=== PATIENT | female | born 1950 | race Caucasian/White ===

== ENCOUNTER → 2019-08-31 | Outpatient (CLI) | payer BC, SELFPAY ==
[2019-08-31 14:31] VITALS: BMI 26.9
[2019-08-31 17:37] LABS: Vitamin D,25 Hydroxy 31.8 ng/mL
[2019-08-31 17:40] LABS: Absolute Lymphocyte Count 1.68 X10^3/uL (0.83-4.51); Absolute Neutrophil Count 4.7 X10^3/uL (2.0-7.7); Basophil# 0.07 X10^3/uL; Eosinophil# 0.21 X10^3/uL; Eosinophils% 2.9 % (0-5); Hemoglobin 14.2 g/dL (12.0-15.0); Lymphocyte # 1.68 X10^3/ul (4.0); Lymphocyte % 23.3 % (19-41); Mean Corpuscular Hgb 29.7 pg (27.0-32.0); Mean Platelet Vol. 10.3 fl (6.2-12.0); Monocyte# 0.57 X10^3/uL; Monocyte% 7.9 % (0-10); NRBC Flagged by Analyzer 0 % (0-5); Neutrophil # 4.66 X10^3/uL (2.7-7.7); Neutrophil % 64.8 % (47-70); Platelet Count 317 K/mm3 (150-450); RBC Distribution Width CV 12.8 % (11.6-14.6); RBC Distribution Width SD 42.5 fl (35.1-43.9); Red Blood Count 4.78 M/mm3 (4.2-5.4); White Blood Count 7.2 K/mm3 (4.4-11.0)
[2019-08-31 17:41] LABS: ALB/GLOB Ratio 1.2 RATIO (0.9-2.4); AST(SGOT) 23 U/L (15-37); Alanine Aminotransfer ALT/SGPT 21 U/L (13-56); Albumin, Serum 3.8 g/dL (3.2-5.0); Alkaline Phosphatase 99 U/L (45-117); Anion Gap 5 (5-15); BUN 15 mg/dL (7-18); BUN/Creat Ratio 19.9 RATIO (10-20); Calcium,Total 9.4 mg/dL (8.5-10.1); Chloride 104 mmol/L (98-107); Cholesterol 238 mg/dL (200); Creatinine, Serum 0.75 mg/dL (0.55-1.02); EST Glomerular Filtration Rate 81 mL/min (>60); Est Glom Filt Rate - Afr Amer 98 mL/min (>60); Globulin 3.1 g/dL (2.2-4.2); Glucose 96 mg/dL (74-106); High Density Lipoprotein 118 mg/dL; Potassium 4.1 mmol/L (3.5-5.1); Protein, Total 6.9 g/dL (6.4-8.2); Sodium Level 139 mmol/L (136-145); Triglycerides 82 mg/dL; Very Low Density Lipoprotein 16 mg/dL (5-40)
== END | disposition home or self-care (01) ==
PROVIDERS: PCP Internal Medicine; Visit Provider Internal Medicine
DX: K21.9 Gastro-esophageal reflux disease without esophagitis (principal); E78.5 Hyperlipidemia, unspecified; M85.80 Other specified disorders of bone density and structure, unspecified site
CPT/HCPCS: 36415; 80053; 80061; 82306; 85025

== ENCOUNTER → 2020-02-24 | Outpatient (CLI) | payer BC, SELFPAY ==
[2019-08-31 14:31] VITALS: BMI 26.9
--- NOTE | 2020-02-24 12:28 | BI_ITS ---
MAMMOGRAPHY - BILATERAL SCREENING REASON FOR EXAM: Female, 69 years old. Routine annual screening examination. PERTINENT HISTORY: Non-contributory. TECHNIQUE: Digital bilateral breast rickey (3D mammographic acquisition) in the CC and MLO projections. 2-D mediolateral oblique (MLO) and craniocaudad (CC) views of both breasts were obtained. CAD: Full Field Digital Mammography with Computer Added Detection was performed. COMPARISON: Comparison is made with prior outside examination dated 10/01/2018. FINDINGS: Breast Composition: The breasts are almost entirely fatty. There are no dominant masses or suspicious calcifications. Stable well-defined 3 mm nodules in the upper outer aspects of both breasts most likely representing small intramammary lymph nodes. No other significant abnormalities are identified. There has been no significant change since the prior study. BI/SCREEN MAMM (CAD) W/RICKEY BILAT IMPRESSION: Stable bilateral screening mammogram. Yearly follow-up mammogram recommended. (A) ASSESSMENT CATEGORY: BIRADS Category 2: Benign. A letter regarding these results will be sent to the patient by the facility within 30 days. Approximately 10% of breast cancers are not detected by mammography. A normal mammogram should not delay biopsy of a clinically suspicious abnormality. [id number] Electronically Signed: Adam Temple, at 13:20 EDT , Service support ,
--- NOTE | 2020-02-24 12:28 | US_ITS ---
STUDY: THYROID ULTRASOUND REASON FOR EXAM: Female, 69 years old. Nodules TECHNIQUE: Ultrasound evaluation of the thyroid was performed with real-time and static bhardwaj-scale imaging. COMPARISON: Comparison is made with prior examination dated 06/17/2018. FINDINGS: RIGHT LOBE: The right lobe of the thyroid gland measures 4.9 cm x 1.6 cm x 1.9 cm. There is a homogeneous echotexture. Multiple nodules are seen. The largest is a complex solid/cystic nodule in the midpole of the right lobe. This measures 9 mm x 7 mm x 6 mm. LEFT LOBE: The left lobe of the thyroid gland measures 4.7 cm x 1.7 cm x 1.7 cm. There is a homogeneous echotexture. There is a stable 3 mm x 2 mm x 3 mm cyst in the upper pole of the left lobe ISTHMUS: The isthmus measures 2.0 mm. The regional lymph nodes are normal. US/Thyroid IMPRESSION: Stable examination. Electronically Signed: Adam Temple, at 15:04 EDT , Service support ,
--- NOTE | 2020-02-24 12:53 | BD_ITS ---
STUDY: DUAL ENERGY X-RAY ABSORPTIOMETRY / DXA REASON FOR EXAM: Female, 69 years old. [employer] -- TAKES CALCIUM IRREGULARLY -- DOES MODERATE AMOUNT OF EXERCISE -- HX OF BILATERAL ARM FX''s AND BILATERAL FEET FX''s -- NO MARK TECHNIQUE: Bone Mineral Density (BMD) measurements of lumbar spine and bilateral hips were obtained. COMPARISON: None. FINDINGS: Lumbar Spine (L1-L4): g/cm2 (0.984) / T-score (-1.6) / Z-score (0.1) Findings are suggestive of osteopenia with a moderate fracture risk. Left Femur Total: g/cm2 (0.734) / T-score (-2.2) / Z-score (-0.8) Left Femoral Neck: g/cm2 (0.717) / T-score (-2.3) / Z-score (-0.7) Right Femur Total: g/cm2 (0.685) / T-score (-2.6) / Z-score (-1.2) Right Femoral Neck: g/cm2 (0.697) / T-score (-2.5) / Z-score (-0.8) BD/Dexa Bone Density Study IMPRESSION: The patient is considered osteoporotic as outlined below according to World Hi Organization (WHO) criteria with a high fracture risk. Reference Information: The T-score is the number of standard deviations above or below the standard which is normal for young adults at their peak bone mineral density. The World Health Organization (WHO) interprets the T-scores as follows: Above -1 Normal bone density Between -1 and -2.5 Osteopenia Equal to / or below -2.5 Osteoporosis As a practical clinical guideline, osteopenia may be graded as follows: Mild -1 through -1.5 Moderate -1.6 through -2.0 Severe -2.1 through -2.4 The Z-score is the number of standard deviations above or below age-matched controls. A Z-score of less than -1.5 would be considered abnormal. References: 1. NIH Osteoporosis and Related Bone Diseases http://www.osteo.org 2. International Society for Clinical Densitometry http://www.iscd.org 3. National Osteoporosis Foundation http://www.nof.org Electronically Signed: Adam Temple, at 13:45 EDT , Service support ,
== END | disposition home or self-care (01) ==
LOC: OPBD 12:28
PROVIDERS: PCP Internal Medicine; Referring Provider Internal Medicine; Visit Provider Internal Medicine
DX: E04.1 Nontoxic single thyroid nodule (principal); M85.80 Other specified disorders of bone density and structure, unspecified site; Z78.0 Asymptomatic menopausal state; Z12.31 Encounter for screening mammogram for malignant neoplasm of breast
CPT/HCPCS: 76536; 77063; 77067; 77080

== ENCOUNTER → 2020-11-29 | Outpatient (CLI) | payer BC, SELFPAY ==
[2020-11-28 15:12] VITALS: BMI 26.9
== END | disposition home or self-care (01) ==
LOC: LABSPEC 13:43
PROVIDERS: PCP Internal Medicine; Referring Provider Physician Assistant; Visit Provider Physician Assistant
DX: R05 Cough (principal)
CPT/HCPCS: 87635; U0005; U0003

== ENCOUNTER → 2023-07-02 | Outpatient (CLI) | payer BC, SELFPAY ==
[2023-07-02 16:39] LABS: Absolute Lymphocyte Count 1.96 X10^3/uL (0.83-4.51); Basophil# 0.09 X10^3/uL; Basophil% 1.2 % (0-1); Eosinophil# 0.19 X10^3/uL; Eosinophils% 2.4 % (0-5); Hematocrit 43.4 % (37-47); Hemoglobin 14.2 g/dL (12.0-15.0); Lymphocyte # 1.96 X10^3/ul (0.83-4.51); Lymphocyte % 25.1 % (19-41); Mean Corp Hgb Conc 32.7 g/dL (32-36); Mean Corpuscular Hgb 28.5 pg (27.0-32.0); Mean Corpuscular Volume 87.1 fL (81-99); Mean Platelet Vol. 10.7 fl (6.2-12.0); Monocyte# 0.57 X10^3/uL; Monocyte% 7.3 % (0-10); NRBC Flagged by Analyzer 0 % (0-5); Neutrophil # 4.98 X10^3/uL (2.7-7.7); Neutrophil % 63.7 % (47-70); Platelet Count 335 K/mm3 (150-450); RBC Distribution Width CV 12.9 % (11.6-14.6); RBC Distribution Width SD 41.3 fl (35.1-43.9); Red Blood Count 4.98 M/mm3 (4.2-5.4); White Blood Count 7.8 K/mm3 (4.4-11.0)
[2023-07-02 17:15] LABS: ALB/GLOB Ratio 1.2 RATIO (0.9-2.4); AST(SGOT) 16 U/L (15-37); Alanine Aminotransfer ALT/SGPT 25 U/L (13-56); Albumin, Serum 3.7 g/dL (3.2-5.0); Alkaline Phosphatase 94 U/L (45-117); Anion Gap -1 (5-15); BUN 16 mg/dL (7-18); BUN/Creat Ratio 24.5 RATIO (10-20); Calcium,Total 9.6 mg/dL (8.5-10.1); Chloride 108 mmol/L (98-107); Cholesterol 216 mg/dL (200); Creatinine, Serum 0.65 mg/dL (0.55-1.02); EST Glomerular Filtration Rate 95 mL/min (>60); Est Glom Filt Rate - Afr Amer 115 mL/min (>60); Globulin 3.1 g/dL (2.2-4.2); Glucose 95 mg/dL (74-106); High Density Lipoprotein 86 mg/dL; Potassium 4.4 mmol/L (3.5-5.1); Protein, Total 6.8 g/dL (6.4-8.2); Sodium Level 137 mmol/L (136-145); T4 Free Direct 0.95 ng/dL (0.76-1.46); Thyroid Stim Hormone (TSH) 0.63 uIU/mL (0.358-3.74); Triglycerides 127 mg/dL; Very Low Density Lipoprotein 25 mg/dL (5-40)
== END | disposition home or self-care (01) ==
LOC: BIMLAB 15:12
PROVIDERS: PCP Internal Medicine; Referring Provider Internal Medicine; Visit Provider Internal Medicine
DX: I10 Essential (primary) hypertension (principal); R00.2 Palpitations; E78.5 Hyperlipidemia, unspecified
CPT/HCPCS: 36415; 80053; 80061; 84439; 84443; 85025

== ENCOUNTER → 2023-07-29 | Outpatient (CLI) | payer BC, SELFPAY | END | disposition home or self-care (01) | LOC: PSN 13:49 | PROVIDERS: PCP Internal Medicine; Referring Provider Internal Medicine; Visit Provider Internal Medicine | DX: R00.2 Palpitations (principal) | CPT/HCPCS: 93225; 93226 ==

== ENCOUNTER → 2023-08-21 | Outpatient (CLI) | payer BC, SELFPAY ==
--- NOTE | 2023-08-21 14:38 | RAD_ITS ---
STUDY: X-RAY - RIGHT ANKLE REASON FOR EXAM: Female, 73 years old. Right Ankle Pain TECHNIQUE: 3 view(s) of the ankle. COMPARISON: None. FINDINGS: Normal visualized distal tibia and fibula. Nondisplaced fracture of the lateral malleolus. Normal tibiotalar articulation and ankle mortise. Normal visualized talus and calcaneus. The visualized subtalar, talonavicular, calcaneocuboid and tarsal articulations are normal. Lateral soft tissue swelling. RAD/Ankle min 3 Views IMPRESSION: Nondisplaced oblique fracture of the lateral malleolus with overlying soft tissue swelling. Electronically Signed: Adam Temple MD at 15:04 EDT ,
--- NOTE | 2023-08-21 14:40 | RAD_ITS ---
STUDY: X-RAY - RIGHT FOOT CLINICAL: Female, 73 years old. Right ankle pain TECHNIQUE: 2 view(s) of the foot. COMPARISON: None. FINDINGS: Nondisplaced fracture of the lateral malleolus. Normal talus, calcaneus, and tarsal bones. Normal visualized subtalar, talonavicular, calcaneocuboid, tarsal and tarsometatarsal articulations. Normal metatarsi. 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 Normal tibial and fibular sesamoid bones. Normal interphalangeal joint of the great toe. Normal phalanges of the great toe. Normal second through fifth metatarsophalangeal joints. Normal interphalangeal joints and phalanges of the lesser toes. The soft tissue structures are unremarkable. RAD/Foot 2 Views IMPRESSION: Nondisplaced fracture of the lateral malleolus. Electronically Signed: Adam Temple MD at 15:06 EDT ,
== END | disposition home or self-care (01) ==
LOC: MTRAD 14:38
PROVIDERS: PCP Internal Medicine; Referring Provider Internal Medicine; Visit Provider Internal Medicine
DX: M25.571 Pain in right ankle and joints of right foot (principal)
CPT/HCPCS: 73610; 73620

== ENCOUNTER 2025-02-25 12:31 | Outpatient (CLI) | payer BC, SELFPAY ==
--- OUTSIDE RECORDS SUMMARY | 2025-02-25 12:53 | XMS RPT_ITS | CCD ---
Author Organization [facility] Care Team Providers Care Development Team Lead Name Role Phone Dr. Kasey Cisneros Primary Care Provider Dr. Kasey Cisneros Attending Provider [phone] Dr. Kasey Cisneros Referring Provider [phone] Oleberthae, Efewongbe Attending Unavailable Oleghe, Efewongbe Referring Unavailable Oleghe, Efewongbe Primary Care Unavailable Oleghe, Efewongbe Primary Care Unavailable Oleghe, Efewongbe Attending Unavailable Oleghe, Efewongbe Referring Unavailable Oleghe, Efewongbe Referring Unavailable Oleghe, Efewongbe Primary Care Unavailable Oleghe, Efewongbe Attending Unavailable Oleghe, Efewongbe Referring Unavailable Oleghe, Efewongbe Primary Care Unavailable Oleghe, Efewongbe Attending Unavailable Oleghe, Efewongbe Referring Unavailable Oleghe, Efewongbe Attending Unavailable Oleghe, Efewongbe Primary Care Unavailable Sachi Allred Attending Unavailabl e Oleghe, Efewongbe Primary Care Unavailable Darryn Reyes Attending Unavailable Oleghe, Efewongbe Referring Unavailable Oleghe, Efewongbe Attending Unavailable Oleghe, Efewongbe Referring Unavailable Oleghe, Efewongbe Primary Care Unavailable Medications Current Medications Medication Drug Class(es) Dates Sig (Normalized) Sig (Original) brimonidine tartrate 0.25 mg/ml ophthalmic solution (3 sources) alpha-Adrenergi c Agonist Start: 08-12-2019 Brimonidine Active 1 DRP OPHTHALMIC 2 to 4 times per day August 12, 2019 12:00am dorzolamide 20 mg/ml / timolol 5 mg/ml ophthalmic solution (3 sources) Carbonic Anhydrase Inhibitor, beta-Adrenergic Oumar Start: 08-12-2019 Dorzolamide-Timolol Active 1 DRP OPHTHALMIC TWICE A DAY August 12, 2019 12:00am latanoprostene bunod 0.24 mg/ml ophthalmic solution (3 sources) Start: 08-12-2019 take 0.024 drop(s) into the eye(s) once daily Latanoprostene Bunod (Vyzulta) 0.024 % drops Active 1 DRP OPHTHALMIC DAILY August 12, 2019 12:00am netarsudil 0.2 mg/ml ophthalmic solution (3 sources) Rho Kinase Inhibitor Start: 08-12-2019 take 0.02 drop(s) into the eye(s) once daily in the evening Netarsudil (Rhopressa) 0.02 % drops Active 1 DRP OPHTHALMIC EVERY EVENING August 12, 2019 12:00am Plantar Fasciitis Night Splint (6 sources) Start: 09-20-2021 Plantar Fasciitis Night Splint Active 0 .Route .MEDSUPPLY September 20, 2021 10:39am Wear nightly Start: 09-20-2021 Plantar Fascii tis Night Splint Active 0 .Route .MEDSUPPLY September 20, 2021 9:39am Wear nightly Start: 09-20-2021 End: 09-20-2021 Plantar Fasciitis Night Spli nt Discontinued 0 .Route .MEDSUPPLY September 20, 2021 12:00am September 20, 2021 10:39am Wear nightly Start: 09-20-2021 End: 09-20-2021 Plantar Fasciitis Night Spli nt Discontinued 0 .Route .MEDSUPPLY September 19, 2021 11:00pm September 20, 2021 9:39am Wear nightly Completed/Discontinued Medications Medication Drug Class(es) Dates Sig (Normalized) Sig (Original) 1 ml denosumab 60 mg/ml prefilled syringe (3 sources) RANK Ligand Inhibitor Start: 02-29-2020 End: 07-02-2023 Denosumab (Prolia) 60 mg/mL syringe Discontinued 60 MG SC every 6 months February 29, 2020 12:00am July 02, 2023 3:35pm famotidine 40 mg oral tablet (9 sources) Histamine-2 Receptor Antagonist Start: 09-01-2019 End: 02-29-2020 take 40 mg by mouth once daily Famotidine Discontinued 40 MG PO DAILY February 29, 2020 2:54pm February 29, 2020 2:55pm hydrocortisone 25 mg/ml topical cream (3 sources) Corticosteroid Start: 08-31-2019 End: 02-29-2020 Hydrocortisone Discontinued 1 APPLIC TOPICAL TWICE A DAY 28.35 August 31, 2019 12:00am February 29, 2020 2:28pm raNITIdine 150 mg oral tablet (3 sources) Histamine-2 Receptor Antagonist Start: 08-31-2019 End: 09-01-2019 take 150 mg by mouth once daily Ranitidine Hcl Discontinued 150 MG PO DAILY August 31, 2019 12:00am September 01, 2019 5:56pm Problems Active Problems Problem Classification Problem Date Documented Date Episodic/Chronic Abdominal hernia (3 sources) Hiatal hernia; Translations: [Diaphragmatic hernia without obstruction or gangrene] 08-31-2019 Episodic Blindness and vision defects (3 sources) Visual impairment; Translations: [Unspecified visual loss] 08-31-2019 Chronic Cardiac dysrhythmias (9 sources) Palpitations; Translations: [Palpitations] Onset: 10-16-2023 07-02-2023 Episodic Cataract (3 sources) Bilateral cataracts; Translations: [Unspecified cataract] 08-31-2019 Chronic Disorders of lipid metabolism (7 sources) Hyperlipidemia; Translations: [Hyperlipidemia, unspecified] Onset: 07-02-2023 08-31-2019 Chronic Esophageal disorders (10 sources) Gastroesophageal reflux disease; Translations: [Gastro-esophageal reflux disease without esophagitis] 07-02-2023 Chronic Essential hypertension (8 sources) Hypertensive disorder; Translations: [Essential (primary) hypertension] Onset: 07-07-2023 07-02-2023 Chronic Fracture of lower limb (2 sources) Fracture of lateral malleolus; Translations: [Displaced fracture of lateral malleolus of unspecified fibula, initial encounter for closed fracture] Onset: 09-01-2023 08-26-2023 Episodic Glaucoma (3 sources) Glaucoma; Translations: [Unspecified glaucoma] 08-31-2019 Chronic Osteoporosis (3 sources) Osteoporosis; Translations: [Age-related osteoporosis without current pathological fracture] 02-29-2020 Chronic Other ear and sense organ disorders (3 sources) Hearing loss; Translations: [Unspecified hearing loss, unspecified ear] 08-31-2019 Chronic Other ear and sense organ disorders (3 sources) Does use hearing aid; Translations: [Presence of external hearing-aid] 08-31-2019 Episodic Other non-traumatic joint disorders (1 source) Ankle pain; Translations: [Pain in right ankle and joints of right foot] 08-20-2023 Episodic Other non-traumatic joint disorders (2 sources) Pain in right ankle and joints of right foot; Translations: [Pain in joint, ankle and foot] Onset: 08-27-2023 08-20-2023 Episodic Other screening for suspected conditions (not mental disorders or infectious disease) (2 sources) Electrocardiogram abnormal; Translations: [Abnormal electrocardiogram [ECG] [EKG]] Onset: 10-16-2023 08-20-2023 Episodic Past or Other Problems Problem Classification Problem Date Documented Da te Episodic/Chronic Unclassified (3 sources) bone fractures 08-31-2019 Results Test Name Value Interpretation Reference Range Facility Orthopedic Visit Reporton Orthopedic Visit Report [facility] [address] [place] [address] OFFICE VISIT Date of Service: 09/01/23 MR#: [id number] Acct: [id number] Name: JAMES ABRAMS Rep #: [id number] : 1950 Provider: Dr. Darryn gordillo MD Age/Sex: 73/F Location: [facility] Status: Signed Intake Vital Signs 08/20/23 15:14 08/29/23 12:00 09/01/23 10:54 Height 5 ft 2.5 in 5 ft 2.5 in 5 ft 2.5 in Weight: 148 lb 2 oz BMI 26.6 BP 130/88 H Blood Pressure Location Lt brachial Position Sitting Respiration 16 Pulse 79 Pulse Source Monitor Temp 97.6 F L Temp Source Temporal Pulse Oximetry (%) 99 Oxygen Delivery Method room air Intake Visit Reasons: RIGHT FOOT/ANKLE Accompanied by: Self Is patient in pain?: Yes Pain scale (1-10): 5 Allergies No Known Allergies Allergy (Verified 09/01/23 10:57) Medications brimonidine 0.025 % eye drops 1 drp ophthalmic (eye) BID-QID PRN 08/12/19 [History Confirmed 09/01/23] dorzolamide 22.3 mg-timolol 6.8 mg/mL eye drops 1 drp ophthalmic (eye) BID 08/12/19 [History Confirmed 09/01/23] latanoprostene bunod 0.024 % eye drops (Vyzulta) 1 drp ophthalmic (eye) DAILY 08/12/19 [History Confirmed 09/01/23] netarsudil 0.02 % eye drops (Rhopressa) 1 drp ophthalmic (eye) QPM 08/12/19 [History Confirmed 09/01/23] famotidine 40 mg tablet 40 mg PO DAILY #90 tabs 02/29/20 [Rx Confirmed 09/01/23] Plantar Fasciitis Night Splint #1 ea 09/20/21 [Rx Confirmed 09/01/23] PFSH Medical History Abnormal EKG bone fractures Cataracts, bilateral GERD (gastroesophageal reflux disease) Glaucoma (increased eye pressure) Hearing deficit Hiatal hernia Hypertension Palpitations Right ankle pain Vision decreased Wears hearing aid Surgical History History of ear surgery Tumor of ovary Family History Mother Heart disease Father Heart disease Cancer Leukemia Grandfather Cancer Other CVA (cerebral vascular accident) Hypertension Social History Smoking Status: Never smoker alcohol intake: current alcohol intake frequency: 0-2 drinks per day Alcohol type: wine substance use type: does not use what type of physical activity do you participate in: walking frequency: 5-6 times per week HPI RIGHT FOOT/ANKLE Details: This documentation accurately reflects the service provided and the decisions made by me, Dr. Darryn Reyes MD 09/01/23 0635. Part of today???s visit was documented by [ ], acting as scribe. JAMES ABRAMS is a 73 year old F here today for right isolated non displaced distal fibula fracture. this happened 4 weeks ago. has been walking without a boot, just a shoe. This happened a month ago. The patient did try an orthosis boot that it was rubbing on the lateral side of the shoe. She is just wearing regular shoes now ambulating reasonably well but taking it a little bit slow on the stairs 1 foot at a time. Ortho Exam General General: Yes no acute distress Neurologic: Yes alert and Yes oriented x3 Psychologic: Yes reasonable and appropriate Right Foot/Ankle Skin/Wound: Yes CDI, healing well and Soft Tissue Swelling; No Ecchymosis or Erythema Exam: present tender to palpate - over fracture site and TTP Lateral Malleolus; absent TTP ATFL, TTP Medial Malleolus or TTP Deltoid Ligament Dorsiflexion 0-20: 5 degrees Plantar Flexion 0-40: 35 degrees Compartments: Compartments: soft Motor: Ankle Dorsiflextion: 4, Ankle Plantar Flexion: 4, Ankle Eversion: 4, Ankle Inversion: 4 and EHL: 4 Sensation: Deep Peroneal Nerve: I, Superficial Peroneal Nerve: I, Tibial Nerve: I, Sural Nerve: I and Saphenous Nerve: I Pulses: Dorsalis Pedis: 2 and Posterior Tibial: 2 ANKLE: slight antalgic gait, otherwise normal. not using crutches. Supplemental Info [facility] [address] [place] [address] Ankle min 3 Views MR#: [id number] Acct: [id number] Name: JAMES ABRAMS Rep #: [id number] : 1950 F 73 From: Adam Temple MD PCP: Dr. Kasey Cisneros MD Status: REG CLI Study: Ankle min 3 Views Date of Exam: 08/21/23 Exam# [id number] Ordering [place]: [place] [id number] STUDY: X-RAY - RIGHT ANKLE REASON FOR EXAM: Female, 73 years old. Right Ankle Pain TECHNIQUE: 3 view(s) of the ankle. COMPARISON: None. FINDINGS: Normal visualized distal tibia and fibula. Nondisplaced fr (more content not included)... Normal [facility] Ankle min 3 Viewson 08-21-19 Ankle min 3 Views [facility] [address] [place] [address] Ankle min 3 Views MR#: [id number] Acct: [id number] Name: JAMES ABRAMS Rep #: [id number] : 1950 F 73 From: Adam calixto MD PCP: Dr. Kasey Cisneros MD Status: REG CLI Study: Ankle min 3 Views Date of Exam: 08/21/23 Exam# [id number] Ordering Dr: [place] [id number] STUDY: X-RAY - RIGHT ANKLE REASON FOR EXAM: Female, 73 years old. Right Ankle Pain TECHNIQUE: 3 view(s) of the ankle. COMPARISON: None. FINDINGS: Normal visualized distal tibia and fibula. Nondisplaced fracture of the lateral malleolus. Normal tibiotalar articulation and ankle mortise. Normal visualized talus and calcaneus. The visualized subtalar, talonavicular, calcaneocuboid and tarsal articulations are normal. Lateral soft tissue swelling. RAD/Ankle min 3 Views IMPRESSION: Nondisplaced oblique fracture of the lateral malleolus with overlying soft tissue swelling. Electronically Signed: Adam Temple MD at 15:04 EDT , CC: Dr. Kasey Cisneros MD Machine Buffer: Signed Normal [facility] Foot 2 Viewson 08-21-2023 Foot 2 Views [facility] [address] [place] [address] Foot 2 Views MR#: [id number] Acct: [id number] Name: JAMES ABRAMS Rep #: [id number] : 1950 F 73 From: Adam calixto MD PCP: Dr. Kasey Cisneros MD Status: REG CLI Study: Foot 2 Views Date of Exam: 08/21/23 Exam# [id number] Ordering Dr: [place] [id number] STUDY: X-RAY - RIGHT FOOT CLINICAL: Female, 73 years old. Right ankle pain TECHNIQUE: 2 view(s) of the foot. COMPARISON: None. FINDINGS: Nondisplaced fracture of the lateral malleolus. Normal talus, calcaneus, and tarsal bones. Normal visualized subtalar, talonavicular, calcaneocuboid, tarsal and tarsometatarsal articulations. Normal metatarsi. 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 Normal tibial and fibular sesamoid bones. Normal interphalangeal joint of the great toe. Normal phalanges of the great toe. Normal second through fifth metatarsophalangeal joints. Normal interphalangeal joints and phalanges of the lesser toes. The soft tissue structures are unremarkable. RAD/Foot 2 Views IMPRESSION: Nondisplaced fracture of the lateral malleolus. Electronically Signed: Adam Temple MD at 15:06 EDT Reading Location ID and State: [facility] / [place] , Service support , CC: Dr. Kasey Cisneros MD Machine Buffer: Signed Normal [facility] Internal Medicine Office Vis jeovany 08-20-2023 Internal Medicine Office Visit [facility] [address] [place] [address] [address] [place] [address] OFFICE VISIT Date of Service: 08/20/23 MR#: [id number] Acct: [id number] Name: JAMES ABRAMS Rep #: [id number] : 1950 Provider: Dr. Kasey barboza MD Age/Sex: 73/F Location: [facility] Status: Signed Intake Vital Signs 07/02/23 14:35 08/20/23 15:14 Height 5 ft 2.5 in 5 ft 2.5 in Weight: 144 lb BMI 25.9 BP 138/88 H 130/88 H Blood Pressure Location Lt brachial Lt brachial Position Sitting Sitting Respiration 16 16 Pulse 69 79 Pulse Source Monitor Monitor Temp 97.7 F L 97.6 F L Temp Source Temporal Temporal Pulse Oximetry (%) 99 99 Oxygen Delivery Method room air room air Intake Visit Reasons: 2 m fu Chief Complaint: 2m f/u Breastfeeding Educator Required: No Accompanied by: Self Is patient in pain?: No Allergies No Known Allergies Allergy (Verified 08/20/23 15:11) Medications brimonidine 0.025 % eye drops 1 drp ophthalmic (eye) BID-QID PRN 08/12/19 [History Confirmed 08/20/23] dorzolamide 22.3 mg-timolol 6.8 mg/mL eye drops 1 drp ophthalmic (eye) BID 08/12/19 [History Confirmed 08/20/23] latanoprostene bunod 0.024 % eye drops (Vyzulta) 1 drp ophthalmic (eye) DAILY 08/12/19 [History Confirmed 08/20/23] netarsudil 0.02 % eye drops (Rhopressa) 1 drp ophthalmic (eye) QPM 08/12/19 [History Confirmed 08/20/23] famotidine 40 mg tablet 40 mg PO DAILY #90 tabs 02/29/20 [Rx Confirmed 08/20/23] Plantar Fasciitis Night Splint #1 ea 09/20/21 [Rx Confirmed 08/20/23] [facility] Medical History (Updated 08/20/23 @ 16:[address] Kasey Cisneros MD) Abnormal EKG bone fractures Cataracts, bilateral GERD (gastroesophageal reflux disease) Glaucoma (increased eye pressure) Hearing deficit Hiatal hernia Hypertension Palpitations Right ankle pain Vision decreased Wears hearing aid Surgical History History of ear surgery Tumor of ovary Family History Mother Heart disease Father Heart disease Cancer Leukemia Grandfather Cancer Other CVA (cerebral vascular accident) Hypertension Social History Smoking Status: Never smoker alcohol intake: current alcohol intake frequency: 0-2 drinks per day Alcohol type: wine substance use type: does not use what type of physical activity do you participate in: walking frequency: 5-6 times per week HPI HPI Chief Complaint: 2m f/u Details: JAMES ABRAMS, is a 73 F who presents to the office today for follow-up. At her last visit, she had reported concerns with palpitations. Holter monitor was ordered however she states that her symptoms resolved prior to getting set up with the monitor. Did not get to do it. Labs did not show any significant concerns. Status post fall about 2 weeks ago. Slipped getting out of her twisted her ankle. Pain with ambulating but not at rest. Redness and swelling seem to be improving. Did not seek care afterward s. Other chronic medical conditions are stable. ROS Const Constitutional: No body ache, chills, excessive sweating, fatigue, fever(s), frequent falls, headache(s), snoring, weakness or change in appetite Eyes Eyes: No blurry vision, change in vision, floaters, eye pain or Light sensitivity ENT ENT: No abnormal hearing, ear or mastoid pain, tinnitus, balance problems, nosebleed/epistaxis, nasal congestion, headache(s), neck pain or sore throat Resp Respiratory: No cough, excessive phlegm production, pain on inspiration, shortness of breath, snoring or wheezing Cardio Cardiology: No chest pain at rest, chest pain with exertion, excessive sweating, dyspnea on exertion, lightheadedness, orthopnea or palpitations Gastro GI: No abdominal pain, change in bowel habits, constipation, cramping, diarrhea, nausea/dyspepsia or vomiting Genitourinary-Female: No burning urination, painful urination, urinary incontinence, urinary frequency, suprapubic fullness or side pain Musc Musculoskeletal: No abnormal gait, joint pain, back pain, limited range of motion, muscle cramps, muscle weakness, neck pain or numbness Skin Skin: No dry skin, redness, lesions, itchy eyes, rash or wounds Neuro Neurology: No abnormal gait, abnormal hearing, behavioral changes, confusion, weakness, frequent falls, headache(s), memory loss or numbness Psych Psychiatric: No anxiety, No behavioral changes, No change in appetite, No confusion, No depression, No memory loss and No Thoughts of harming yourself/Others Endo Endocrine: No cold intolerance, excessive sweating, fatigue, flushing, heat intolerance, increased thirst/drinking or increased hunger Aller/Imm Allergy/Immunologic: No itchy eyes, seasonal allergy symptoms, h (more content not included)... Normal [facility] Absolute lymphocyte countOrd ered By: Kasey Cisneros on 07-02-2023 Lymphocytes Auto (Unsp spec) [#/Vol] 1.96 10*3/uL 0.83-4.[address] [facility] Automated lymphocyte count a s percentage of total leukocytesOrdered By: Kasey Cisneros on 07-02-2023 Lymphocytes/100 WBC Auto (Unsp spec) 25.1 % 19-[address] [facility] Basophil percentageOrdered B y: Kasey Cisneros on 07-02-2023 Basophils/100 WBC (Bld) 1.2 % 0-[address] [facility] Bilirubin [Mass/Vol] 0.30 mg/dL 0.20-1.00 [facility] Comment on above: For patients on eltr ombopag therapy, use of Dimension [place] TBIL is not recommended. Chloride [Moles/Vol] 108 mmol/L 98-107 [facility] Cholesterol [Mass/Vol] 216 mg/dL <200 [facility] Comment on above: <200 mg/dL Desirable 200-240 mg/dL Borderline >240 mg/dL High Risk Eosinophils/100 WBC (Bld) 2.4 % 0-[address] [facility] Glucose [Mass/Vol] 95 mg/dL 74-106 [facility] Hemoglobin (Bld) [Mass/Vol] 14.2 g/dL 12.0-15.[address] [facility] Monocytes/100 WBC (Bld) 7.3 % 0-[address] [facility] Neutrophils (Bld) [#/Vol] 5.0 10*3/uL 2.0-7.[address] [facility] Neutrophils/100 WBC (Bld) 63.7 % 47-[address] [facility] Potassium [Moles/Vol] 4.4 mmol/L 3.5-5.1 [facility] Protein [Mass/Vol] 6.8 g/dL 6.4-8.2 [facility] Sodium [Moles/Vol] 137 mmol/L 136-145 [facility] Triglyceride [Mass/Vol] 127 mg/dL <[address] [facility] Comment on above: The drugs N-Acetylcy steine and Metamizole may falsely depress this assay.Serum Triglycerides Reference Interval Normal <150 mg/dL Borderline high 150 - 199 mg/dL High 200 - 499 mg/dL Very High > or = 500 mg/dL WBC (Bld) [#/Vol] 7.8 10*3/uL 4.4-11.0 [facility] CBC W/Diff, Automatedon - Absolute Lymph 1.96 X10 3/uL Normal 0.83-4.[address] [facility] Comment on above: Performed By: #### L 500.4100, L500.4050, L501.9520, L100.0100, L506.0400 #### [facility] [address] [place], [address] Absolute Neut 5.0 X10 3/uL Normal 2.0-7.[address] [facility] Comment on above: Performed By: #### L 500.4100, L500.4050, L501.9520, L100.0100, L506.0400 #### [facility] [address] [place], [address] Basophils/100 WBC (Bld) 1.2 % High 0-[address] [facility] Comment on above: Performed By: #### L 500.4100, L500.4050, L501.9520, L100.0100, L506.0400 #### [facility] [address] [place], [address] Eosinophils/100 WBC (Bld) 2.4 % Normal 0-[address] [facility] Comment on above: Performed By: #### L 500.4100, L500.4050, L501.9520, L100.0100, L506.0400 #### [facility] [address] [place], [address] Erythrocyte distribution width (RBC) [Ratio] 12.9 % Normal 11.6-14.[address] [facility] Comment on above: Performed By: #### L 500.4100, L500.4050, L501.9520, L100.0100, L506.0400 #### [facility] [address] [place], [address] Hematocrit (Bld) [Volume fraction] 43.4 % Normal 37-[address] [facility] Comment on above: Performed By: #### L 500.4100, L500.4050, L501.9520, L100.0100, L506.0400 #### [facility] [address] [place], [address] Hemoglobin (Bld) [Mass/Vol] 14.2 g/dL Normal 12.0-15.[address] [facility] Comment on above: Performed By: #### L 500.4100, L500.4050, L501.9520, L100.0100, L506.0400 #### [facility] [address] [place], [address] IG% 0.300 Normal 0.0-0.[address] [facility] Comment on above: Result Comment: IG% - Immature Granulocytes (promyelocytes, myelocytes and metamyelocytes) > 1% indicates that a LEFT SHIFT is Present. Performed By: #### L 500.4100, L500.4050, L501.9520, L100.0100, L506.0400 #### [facility] [address] [place], [address] Lymphocytes/100 WBC (Bld) 25.1 % Normal 19-[address] [facility] Comment on above: Performed By: #### L 500.4100, L500.4050, L501.9520, L100.0100, L506.0400 #### [facility] [address] [place], [address] MCH (RBC) [Entitic mass] 28.5 pg Normal 27.0-32.[address] [facility] Comment on above: Performed By: #### L 500.4100, L500.4050, L501.9520, L100.0100, L506.0400 #### [facility] [address] [place], [address] MCHC (RBC) [Mass/Vol] 32.7 g/dL Normal 32-36 [facility] Comment on above: Performed By: #### L 500.4100, L500.4050, L501.9520, L100.0100, L506.0400 #### [facility] [address] [place], [address] MCV (RBC) [Entitic vol] 87.1 fL Normal 81-[address] [facility] Comment on above: Performed By: #### L 500.4100, L500.4050, L501.9520, L100.0100, L506.0400 #### [facility] [address] [place], [address] Monocytes/100 WBC (Bld) 7.3 % Normal 0-[address] [facility] Comment on above: Performed By: #### L 500.4100, L500.4050, L501.9520, L100.0100, L506.0400 #### [facility] [address] [place], [address] Neutrophils/100 WBC (Bld) 63.7 % Normal 47-[address] [facility] Comment on above: Performed By: #### L 500.4100, L500.4050, L501.9520, L100.0100, L506.0400 #### [facility] [address] [place], [address] Nucleated RBC (Bld) [#/Vol] 0 10*3/uL Normal 0-[address] [facility] Comment on above: Performed By: #### L 500.4100, L500.4050, L501.9520, L100.0100, L506.0400 #### [facility] [address] [place], [address] Platelet mean volume (Bld) [Entitic vol] 10.7 fL Normal 6.2-12.[address] [facility] Comment on above: Performed By: #### L 500.4100, L500.4050, L501.9520, L100.0100, L506.0400 #### [facility] [address] [place], [address] Platelets (Bld) [#/Vol] 335 10*3/uL Normal 150-[address] [facility] Comment on above: Performed By: #### L 500.4100, L500.4050, L501.9520, L100.0100, L506.0400 #### [facility] [address] [place], [address] RBC (Bld) [#/Vol] 4.98 10*6/uL Normal 4.2-5.4 [facility] Comment on above: Performed By: #### L 500.4100, L500.4050, L501.9520, L100.0100, L506.0400 #### [facility] [facility] [address] [place], [address] RDW SD 41.3 fl Normal 35.1-43.[address] [facility] Comment on above: Performed By: #### L 500.4100, L500.4050, L501.9520, L100.0100, L506.0400 #### [facility] [address] [place], [address] WBC (Bld) [#/Vol] 7.8 10*3/uL Normal 4.4-11.0 [facility] Comment on above: Performed By: #### L 500.4100, L500.4050, L501.9520, L100.0100, L506.0400 #### [facility] [address] [place], [address] Comprehensive Metabolic Prof ilon 07-02-2023 Albumin [Mass/Vol] 3.7 g/dL Normal 3.2-5.0 [facility] Comment on above: Performed By: #### L 500.4100, L500.4050, L501.9520, L100.0100, L506.0400 #### [facility] [address] [place], [address] Albumin/Globulin [Mass ratio] 1.2 {ratio} Normal 0.9-2.[address] [facility] Comment on above: Performed By: #### L 500.4100, L500.4050, L501.9520, L100.0100, L506.0400 #### [facility] [address] [place], [address] ALK P 94 U/L Normal 45-[address] [facility] Comment on above: Performed By: #### L 500.4100, L500.4050, L501.9520, L100.0100, L506.0400 #### [facility] [address] [place], [address] ALT [Catalytic activity/Vol] 25 U/L Normal 13-[address] [facility] Comment on above: Performed By: #### L 500.4100, L500.4050, L501.9520, L100.0100, L506.0400 #### [facility] [address] [place], [address] AST [Catalytic activity/Vol] 16 U/L Normal 15-[address] [facility] Comment on above: Performed By: #### L 500.4100, L500.4050, L501.9520, L100.0100, L506.0400 #### [facility] [address] [place], [address] Bilirubin [Mass/Vol] 0.30 mg/dL Normal 0.20-1.00 [facility] Comment on above: Result Comment: For patients on eltrombopag therapy, use of Dimension [place] TBIL is not recommended. Performed By: #### L 500.4100, L500.4050, L501.9520, L100.0100, L506.0400 #### [facility] [address] [place], [address] BUN/CRE 24.5 RATIO High 10-[address] [facility] Comment on above: Performed By: #### L 500.4100, L500.4050, L501.9520, L100.0100, L506.0400 #### [facility] [address] [place], [address] CA,Total 9.6 mg/dL Normal 8.5-10.[address] [facility] Comment on above: Performed By: #### L 500.4100, L500.4050, L501.9520, L100.0100, L506.0400 #### [facility] [address] [place], [address] Chloride [Moles/Vol] 108 mmol/L High 98-107 [facility] Comment on above: Performed By: #### L 500.4100, L500.4050, L501.9520, L100.0100, L506.0400 #### [facility] [address] [place], [address] CO2 [Moles/Vol] 30.0 mmol/L Normal 21.0-32.[address] [facility] Comment on above: Performed By: #### L 500.4100, L500.4050, L501.9520, L100.0100, L506.0400 #### [facility] [address] [place], [address] Creatinine [Mass/Vol] 0.65 mg/dL Normal 0.55-1.02 [facility] Comment on above: Result Comment: The validity of the calculated GFR GFRAA in patients over 70 years has not been determined. Clinical correlation is essential. Performed By: #### L 500.4100, L500.4050, L501.9520, L100.0100, L506.0400 #### [facility] [address] [place], [address] EST GFR - AA 115 mL/min Normal >[address] [facility] Comment on above: Result Comment: Afri can Czech GFR Calc Performed By: #### L 500.4100, L500.4050, L501.9520, L100.0100, L506.0400 #### [facility] [address] [place], [address] GAP -1 Low 5-[address] [facility] Comment on above: Performed By: #### L 500.4100, L500.4050, L501.9520, L100.0100, L506.0400 #### [facility] [address] [place], [address] GFR/1.73 sq M.predicted among non-blacks MDRD (S/P/Bld) [Vol rate/Area] 95 mL/min/{1.73_m2} Normal >[address] [facility] Comment on above: Result Comment: Non- GFR Calc Performed By: #### L 500.4100, L500.4050, L501.9520, L100.0100, L506.0400 #### [facility] [address] [place], [address] Globulin (S) [Mass/Vol] 3.1 g/dL Normal 2.2-4.[address] [facility] Comment on above: Performed By: #### L 500.4100, L500.4050, L501.9520, L100.0100, L506.0400 #### [facility] [address] [place], [address] Glucose [Mass/Vol] 95 mg/dL Normal 74-106 [facility] Comment on above: Performed By: #### L 500.4100, L500.4050, L501.9520, L100.0100, L506.0400 #### [facility] [address] [place], [address] Potassium [Moles/Vol] 4.4 mmol/L Normal 3.5-5.1 [facility] Comment on above: Performed By: #### L 500.4100, L500.4050, L501.9520, L100.0100, L506.0400 #### [facility] [address] [place], [address] Sodium [Moles/Vol] 137 mmol/L Normal 136-145 [facility] Comment on above: Performed By: #### L 500.4100, L500.4050, L501.9520, L100.0100, L506.0400 #### [facility] [address] [place], [address] T PROT 6.8 g/dL Normal 6.4-8.[address] [facility] Comment on above: Performed By: #### L 500.4100, L500.4050, L501.9520, L100.0100, L506.0400 #### [facility] [address] [place], [address] Urea nitrogen [Mass/Vol] 16 mg/dL Normal 7-[address] [facility] Comment on above: Performed By: #### L 500.4100, L500.4050, L501.9520, L100.0100, L506.0400 #### [facility] [address] [place], [address] Determination of erythrocyte mean corpuscular volume (MCV)Ordered By: Kasey Cisneros on 07-02-2023 MCV (RBC) [Entitic vol] 87.1 fL 81-[address] [facility] Erythrocyte distribution wid th ratioOrdered By: [facility] Gl[facility] on 07-02-2023 Erythrocyte distribution width (RBC) [Ratio] 12.9 % 11.6-14.[address] [facility] Erythrocyte distribution wid th standard deviationOrdered By: [facility] on 07-02-2023 Erythrocyte distribution width (RBC) [Entitic vol] 41.3 fL 35.1-43.[address] [facility] Hematocrit Auto (Bld) [Volum e fraction]Ordered By: [facility] Cisneros on 07-02-2023 Hematocrit (Bld) [Volume fraction] 43.4 % 37-[address] [facility] Immature granulocytes/100 WB C Auto (Bld)Ordered By: [facility] on 07-02-2023 Immature granulocytes/100 WBC (Bld) 0.300 % 0.0-0.[address] [facility] Comment on above: IG% - Immature Granu locytes (promyelocytes, myelocytes and metamyelocytes) > 1% indicates that a LEFT SHIFT is Present. Internal Medicine Office Vis iton 07-02-2023 Internal Medicine Office Visit [facility] [address] [place] [address] [place] [address] OFFICE VISIT Date of Service: 07/02/23 MR#: [id number] Acct: [id number] Name: JAMES ABRAMS Rep #: [id number] : 1950 Provider: Dr. Kasey barboza MD Age/Sex: 73/F Location: [facility] Status: Signed Intake Vital Signs 02/29/20 14:23 07/02/23 14:35 Height 5 ft 2.5 in 5 ft 2.5 in Weight: 144 lb BMI 25.9 BP 138/88 H Blood Pressure Location Lt brachial Position Sitting Respiration 16 Pulse 69 Pulse Source Monitor Temp 97.7 F L Temp Source Temporal Pulse Oximetry (%) 99 Oxygen Delivery Method room air Intake Visit Reasons: HEART PALPITATIONS AND HIGH BP Chief Complaint: heart palps high bp Breastfeeding Educator Required: No Accompanied by: Self Is patient in pain?: No Allergies No Known Allergies Allergy (Verified 07/02/23 14:32) Medications brimonidine 0.025 % eye drops 1 drp ophthalmic (eye) BID-QID PRN 08/12/19 [History Confirmed 07/02/23] dorzolamide 22.3 mg-timolol 6.8 mg/mL eye drops 1 drp ophthalmic (eye) BID 08/12/19 [History Confirmed 07/02/23] latanoprostene bunod 0.024 % eye drops (Vyzulta) 1 drp ophthalmic (eye) DAILY 08/12/19 [History Confirmed 07/02/23] netarsudil 0.02 % eye drops (Rhopressa) 1 drp ophthalmic (eye) QPM 08/12/19 [History Confirmed 07/02/23] famotidine 40 mg tablet 40 mg PO DAILY #90 tabs 02/29/20 [Rx Confirmed 07/02/23] Plantar Fasciitis Night Splint #1 ea 09/20/21 [Rx Confirmed 07/02/23] PFSH Medical History (Updated 07/02/23 @ 18:[address] Kasey Cisneros MD) bone fractures Cataracts, bilateral GERD (gastroesophageal reflux disease) Glaucoma (increased eye pressure) Hearing deficit Hiatal hernia Hypertension Palpitations Vision decreased Wears hearing aid Surgical History History of ear surgery Tumor of ovary Family History Mother Heart disease Father Heart disease Cancer Leukemia Grandfather Cancer Other CVA (cerebral vascular accident) Hypertension Social History Smoking Status: Never smoker alcohol intake: current alcohol intake frequency: 0-2 drinks per day Alcohol type: wine substance use type: does not use what type of physical activity do you participate in: walking frequency: 5-6 times per week HPI HPI Chief Complaint: heart palps high bp Details: JAMES ABRAMS, is a 73 F who presents to the office today with some concerns. She states that over the last 3 weeks, she has had intermittent episodes of feeling of her heartbeat. Episodes are typically sudden onset and lasts about 5 minutes. No chest pain, chest tig htness or otherwise feeling of unwell associated with these episodes. Has also been monitoring her blood pressure at home and her readings have been variable with concern and elevated readings. Currently not on antihypertensive. Significant family history of hypertension. ROS Const Constitutional: Positive for headache(s); No body ache, chills, excessive sweating, fatigue, fever(s), frequent falls, snoring, weakness or change in appetite Eyes Eyes: No blurry vision, change in vision, bulging eyes, floaters, eye pain or Light sensitivity ENT ENT: Positive for headache(s); No abnormal hearing, ear or mastoid pain, tinnitus, balance problems, nosebleed/epistaxis, nasal congestion, neck pain or sore throat Resp Respiratory: No cough, excessive phlegm production, pain on inspiration, shortness of breath, snoring or wheezing Cardio Cardiology: Positive for dyspnea on exertion, irregular heart rhythm and palpitations; No chest pain at rest, chest pain with exertion, excessive sweating, lightheadedness or orthopnea Gastro GI: No abdominal pain, change in bowel habits, constipation, cramping, diarrhea, nausea/dyspepsia or vomiting Genitourinary-Female: No burning urination, painful urination, urinary incontinence, urinary frequency, suprapubic fullness or side pain Musc Musculoskeletal: No abnormal gait, joint pain, back pain, limited range of motion, muscle weakness, neck pain or numbness Skin Skin: No dry skin, redness, lesions, itchy eyes, rash or wounds Neuro Neurology: Positive for headache(s); No abnormal gait, abnormal hearing, weakness, frequent falls, memory loss or numbness Psych Psychiatric: No anxiety, No change in appetite, No depression, No memory loss and No Thoughts of harming yourself/Others Endo Endocrine: No cold intolerance, excessive sweating, fatigue, flushing, heat intolerance, increased thirst/drinking or increased hunger Aller/Imm Allergy/Immunologic: No itchy eyes, seasonal allergy symptoms, hives or wheezing Cristiano/Lymp Hematologic/Lymphatic: No easy bleed (more content not included)... Normal [facility] - Chemistry and C hemistry - challengeOrdered By: Kasey Cisneros on 07-02-2023 Albumin/Globulin [Mass ratio] 1.2 {ratio} 0.9-2.[address] [facility] ALP [Catalytic activity/Vol] 94 U/L 45-[address] [facility] ALT [Catalytic activity/Vol] 25 U/L 13-[address] [facility] Cholesterol in HDL (Body fld) [Mass/Vol] 86 mg/dL >[address] [facility] Comment on above: The drugs N-Acetylcy steine and Metamizole may falsely depress this assay. Reference Range HDL <40 mg/dL Low HDL Cholesterol HDL >or= 60 mg/dL High HDL Cholesterol Cholesterol in LDL (Body fld) [Moles/Vol] 105 mg/dL 0-[address] [facility] Cholesterol in VLDL Calc [Moles/Vol] 25 mg/dL 5-[address] [facility] CO2 [Moles/Vol] 30.0 mmol/L 21.0-32.[address] [facility] Globulin (S) [Mass/Vol] 3.1 g/dL 2.2-4.[address] [facility] Urea nitrogen/Creatinine [Mass ratio] 24.5 mg/mg 10-[address] [facility] - Hematology and Cell countsOrdered By: Kasey Cisneros on 07-02-2023 MCH (RBC) [Entitic mass] 28.5 pg 27.0-32.[address] [facility] MCHC (RBC) [Mass/Vol] 32.7 g/dL 32-36 [facility] Nucleated RBC/100 WBC (Bld) [Ratio] 0 % 0-[address] [facility] Platelets (Bld) [#/Vol] 335 10*3/uL 150-[address] [facility] Lipid Profileon 07-02-2023 Cholesterol [Mass/Vol] 216 mg/dL High 200 [facility] Comment on above: Result Comment: <200 mg/dL Desirable 200-240 mg/dL Borderline >240 mg/dL High Risk Performed By: #### L 500.4100, L500.4050, L501.9520, L100.0100, L506.0400 #### [facility] [address] [place], [address] Cholesterol in HDL [Mass/Vol] 86 mg/dL Normal [facility] Comment on above: Result Comment: The drugs N-Acetylcysteine and Metamizole may falsely depress this assay. Reference Range HDL <40 mg/dL Low HDL Cholesterol HDL >or= 60 mg/dL High HDL Cholesterol Performed By: #### L 500.4100, L500.4050, L501.9520, L100.0100, L506.0400 #### [facility] [address] [place], [address] Cholesterol in LDL [Mass/Vol] 105 mg/dL Normal 0-[address] [facility] Comment on above: Performed By: #### L 500.4100, L500.4050, L501.9520, L100.0100, L506.0400 #### [facility] [address] [place], [address] Cholesterol in VLDL [Mass/Vol] 25 mg/dL Normal 5-[address] [facility] Comment on above: Performed By: #### L 500.4100, L500.4050, L501.9520, L100.0100, L506.0400 #### [facility] [address] [place], [address] Triglyceride [Mass/Vol] 127 mg/dL Normal [facility] Comment on above: Result Comment: The drugs N-Acetylcysteine and Metamizole may falsely depress this assay. Serum Triglycerides Reference Interval Normal <150 mg/dL Borderline high 150 - 199 mg/dL High 200 - 499 mg/dL Very High > or = 500 mg/dL Performed By: #### L 500.4100, L500.4050, L501.9520, L100.0100, L506.0400 #### [facility] [address] [place], [address] No Panel InformationOrdered By: Kasey Cisneros on 07-02-2023 Estimated GFR (MDRD) Amer 115 mL/min >[address] [facility] Comment on above: GFR Calc Estimated GFR (MDRD) Non-Af Amer 95 mL/min >[address] [facility] Comment on above: Non- GFR Calc Platelet mean volume Alex-Ec ker (Bld) [Entitic vol]Ordered By: Kasey Cisneros on 07-02-2023 Platelet mean volume (Bld) [Entitic vol] 10.7 fL 6.2-12.[address] [facility] RBC Auto (Bld) [#/Vol]Ordere d By: Kasey Cisneros on 07-02-2023 RBC (Bld) [#/Vol] 4.98 10*6/uL 4.2-5.4 [facility] Serum or plasma calcium rosemarie urement (mass/volume)Ordered By: Kasey Cisneros on 07-02-2023 Calcium [Mass/Vol] 9.6 mg/dL 8.5-10.1 [facility] Serum or plasma creatinine m easurement (mass/volume)Ordered By: Kasey Cisneros on 07-02-2023 Creatinine [Mass/Vol] 0.65 mg/dL 0.55-1.02 [facility] Comment on above: The validity of the calculated GFR & GFRAA in patients over 70 years has not been determined. Clinical correlation is essential. Serum or plasma thyroid stim ulating hormone (TSH) measurement (units/volume)Ordered By: Kasey Cisneros on 07-02-2023 TSH Qn 0.63 uIU/mL 0.358-3.[address] [facility] Serum or plasma urea nitroge n measurement (mass/volume)Ordered By: Kasey Cisneros on 07-02-2023 Urea nitrogen [Mass/Vol] 16 mg/dL 7-[address] [facility] T4 Free Directon 07-02-2023 T4 FREE DIRECT 0.95 ng/dL Normal 0.76-1.[address] [facility] Comment on above: Performed By: #### L 500.4100, L500.4050, L501.9520, L100.0100, L506.0400 #### [facility] [address] [place], [place], [address] Thin prep Papanicolaou smear with manual screeningOrdered By: Kasey Cisneros on 07-02-2023 Thin prep Papanicolaou smear with manual screening 3.7 g/dL 3.2-5.[address] [facility] Thin prep Papanicolaou smear with manual screening 16 U/L 15-[address] [facility] Thin prep Papanicolaou smear with manual screening -1 5-[address] [facility] Thin prep Papanicolaou smear with manual screening 0.95 ng/dL 0.76-1.[address] [facility] Thyroid Stim Hormone (TSH)on 07-02-2023 TSH 0.63 uIU/mL Normal 0.358-3.[address] [facility] Comment on above: Performed By: #### L 500.4100, L500.4050, L501.9520, L100.0100, L506.0400 #### [facility] [address] [place], [place], [address] Vital Signs Date Time Vital Sign Value Performing Clinician Ashley hendricks 08-20-2023 15:14-0400 Body height 158.[address] Kasey Cisneros Work Phone: [facility] 08-20-2023 15:14-0400 Body temperature 97.6 [degF] Dr. Kasey Cisneros Work Phone: [facility] 08-20-2023 15:14-0400 Diastolic blood pressure 88 mm[Hg] Dr. Kasey Cisneros Work Phone: [facility] 08-20-2023 15:14-0400 Heart rate 79 /min Dr. Kasey Cisneros Work Phone: [facility] 08-20-2023 15:14-0400 Respiratory rate 16 /min Dr. Kasey Cisneros Work Phone: [facility] 08-20-2023 15:14-0400 SaO2% (BldA) [Mass fraction] 99 % Dr. Kasey Cisneros Work Phone: [facility] 08-20-2023 15:14-0400 Systolic blood pressure 130 mm[Hg] Dr. Kasey Cisneors Work Phone: [facility] 07-02-2023 14:35-0500 Body height 158.[address] Kasey Cisneros Work Phone: [facility] 07-02-2023 14:35-0500 Body mass index (BMI) [Ratio] 25.9 kg/m2 Dr. Kasey Cisneros Work Phone: [facility] 07-02-2023 14:35-0500 Body temperature 97.7 [degF] Dr. Kasey Cisneros Work Phone: [facility] 07-02-2023 14:35-0500 Body weight 65.[address] Kasey Cisneros Work Phone: [facility] 07-02-2023 14:35-0500 Diastolic blood pressure 88 mm[Hg] Dr. Kasey Cisneros Work Phone: [facility] 07-02-2023 14:35-0500 Heart rate 69 /min Dr. Kasey Cisneros Work Phone: [facility] 07-02-2023 14:35-0500 Respiratory rate 16 /min Dr. Kasey Cisneros Work Phone: [facility] 07-02-2023 14:35-0500 SaO2% (BldA) [Mass fraction] 99 % Dr. Kasey Cisneros Work Phone: [facility] 07-02-2023 14:35-0500 Systolic blood pressure 138 mm[Hg] Dr. Kasey Cisneros Work Phone: [facility] Encounters Encounter Date Encounter Type Care Provider Facility Start: 10-22-2023 ambulatory Kasey Cisneros Facili ty:[facility] Start: 09-01-2023 End: 09-01-20[facility] Start: 08-21-2023 End: 08-21-[address] Kasey Cisneros Work Phone: [facility] Work Phone: Start: 08-21-2023 End: 08-21-[address] Kasey Cisneros Work Phone: [facility] Work Phone: Start: 08-20-2023 End: 08-20-2023 ambulatory Kasey Cisneros Facility:[facility] Start: 08-20-2023 End: 08-20-[address] Kasey Cisneros Work Phone: [facility] Work Phone: Start: 07-29-2023 End: 07-29-[address] Kasey Cisneros Work Phone: [facility] Work Phone: Start: 07-29-2023 End: 07-29-[address] Kasey Cisneros Work Phone: [facility] Work Phone: Start: 07-02-2023 End: 07-02-2023 ambulatory Kasey Cisneros Facility:[facility] Start: 07-02-2023 End: 07-02-[address] Kasey Cisneros Work Phone: [facility] Work Phone: Start: 07-02-2023 End: 07-02-[address] Kasey Cisneros Work Phone: [facility] Work Phone: Procedures Date Procedure Procedure Detail Performing Clinician Start: 08-21-[address] Kasey Cisneros Work Phone: Start: 08-21-[address] Ervin Cisneros Work Phone: Plan of Treatment Date Care Activity Detail Author Start: 08-20-2023 Evaluation of [facility] study results [facility] Start: 07-02-2023 Evaluation of diagno [facility] study results [facility] Ambulatory ECG [facility] [place] Heart Views W str ess and W radionuclide IV [facility] Immunizations Immunization Date Immunization Notes Care Provider Fa cility 02-29-2020 influenza, injectabl e, quadrivalent, preservative free Dr. Kasey Cisneros Work Phone: [facility] 02-29-2020 pneumococcal conjuga te vaccine, [address] Kasey Cisneros Work Phone: [facility] Payers Date Payer Category Payer Self-pay [id number] 2023 Unknown [id number] Unknown [id number] 2.16.8 [id number] Unknown [id number] 2.16.8 [id number] Unknown [id number] 2.16.8 [id number] Unknown [id number] 2.16.8 [id number] Unknown [id number] 2.16.8 [id number] Unknown [id number] 2.16.8 [id number] Unknown [id number] 2.16.8 [id number] Unknown [id number] 2.16.8 [id number] Social History Date Type Detail Facility Start: 07-02-2023 End: 08-20-2023 Tobacco smoking status NHIS Unknown if ever smoked [facility] Start: 1950 Sex Assigned At Female [facility] Evaluation note Note Date & Type Note Facility Evaluation note Diagnosis Onset Date Palpitations acute GERD (gastroesophageal reflux disease) chronic Hyperlipidemia chronic Hypertension chronic [facility] Work Phone: Evaluation note Note Date & Type Note Facility Evaluation note Diagnosis Onset Date GERD (gastroesophageal reflux disease) chronic Hyperlipidemia chronic Hypertension chronic Palpitations chronic Right ankle pain acute GERD (gastroesophageal reflux disease) chronic Hypertension chronic Palpitations chronic [facility] Work Phone: Chief Complaint and Reason for Visit Chief Complaint HEART PALPITATIONS A ND HIGH BP Reason for Visit Palpitations GERD (gastroesophageal reflux disease) Hyperlipidemia Hypertension Chief Complaint HEART PALPITATIONS A ND HIGH BP PALP Reason for Visit Palpitations GERD (gastroesophageal reflux disease) Hyperlipidemia Hypertension Chief Complaint HEART PALPITATIONS A ND HIGH BP PALP 2 m fu Right Ankle Pain Right ankle pain Reason for Visit GERD (gastroesophage al reflux disease) Hyperlipidemia Hypertension Palpitations Right ankle pain GERD (gastroesophageal reflux disease) Hypertension Palpitations Family History No Family History Records Found Relationship Condition Age at Onset Recorded Date/T jaimee Not Specified Hypertension Unknown Cerebrovascular accident (CVA) Unknown mother Cardiac disease Unknown father Cardiac disease Unknown Malignant neoplasm Unknown grandfather Malignant neoplasm Unknown Summary Purpose Advance Directives No Advanced Directives Records Found Additional Source Comments Care Teams (unrecognized sec tion and content) Team Status: Active Member Role Status Dates Dr. Kasey Cisneros MD Primary Care Provider Active Team Status: Inactive Member Role Status Dates Dr. Kasey Cisneros MD Primary Care P jose, Attending Provider, Referring Provider Active Goals (unrecognized section and content) Goals may be documented in a n alternate sectionGoals may be documented in an alternate sectionGoals may be documented in an alternate section INFORMATION SOURCE (unrecogn ized section and content) DATE CREATED AUTHOR 10/25/2023 [facility] FOR RECORDS PERTAINING TO PATIENTS WHO ARE OR HAVE BEEN ENROLLED IN A CHEMICAL DEPENDENCY/SUBSTANCEABUSE PROGRAM, SOME INFORMATION MAY BE OMITTED. This clinical summary was aggregated from multiple sources. Caution should be exercised in using it in the provision of clinical care. This summary normalizes information from multiple sources, and as a consequence, information in this document may materially change the coding, format and clinical context of patient data. In addition, data may be omitted in some cases. CLINICAL DECISIONS SHOULD BE BASED ON THE PRIMARY CLINICAL RECORDS. [facility]. provides no warranty or guarantee of the accuracy or completeness of information in this document.
[2025-02-25 16:20] LABS: Hematocrit 42.9 % (37-47); Hemoglobin 14.5 g/dL (12.0-15.0); Mean Corp Hgb Conc 33.8 g/dL (32-36); Mean Corpuscular Volume 85.5 fL (81-99); Mean Platelet Vol. 10.8 fl (6.2-12.0); Platelet Count 354 K/mm3 (150-450); RBC Distribution Width CV 12.7 % (11.6-14.6); RBC Distribution Width SD 39.6 fl (35.1-43.9); Red Blood Count 5.02 M/mm3 (4.2-5.4); White Blood Count 8.3 K/mm3 (4.4-11.0)
[2025-02-25 16:27] LABS: CRP < 3.00 mg/L (0.0-3.0)
[2025-02-25 16:35] LABS: Fibrinogen 356 mg/dl (203-444)
== END 2025-02-25 23:59 | disposition home or self-care (01) ==
LOC: MTLAB 12:34
PROVIDERS: PCP Internal Medicine
DX: M31.6 Other giant cell arteritis (principal)
CPT/HCPCS: 36415; 85027; 85384; 85652; 86140

== ENCOUNTER → 2025-03-07 | Outpatient (CLI) | payer BC, SELFPAY ==
[2025-03-07 13:07] LABS: AST(SGOT) 20 U/L (<=31); Alanine Aminotransfer ALT/SGPT 14 U/L (<=34); Albumin, Serum 4.1 g/dL (3.4-4.8); Alkaline Phosphatase 81 U/L (35-104); Anion Gap 11 (5-15); BUN 11 mg/dL (4-19); BUN/Creat Ratio 16.0 RATIO (10-20); Calcium,Total 9.8 mg/dL (7.6-11.0); Carbon Dioxide 22.0 mmol/L (21.0-32.0); Chloride 106 mmol/L (98-108); Globulin 2.3 g/dL (2.2-4.2); Glucose 85 mg/dL (70-99); Potassium 4.1 mmol/L (3.3-5.1); Vitamin D,25 Hydroxy 25.3 ng/mL (30-100)
== END | disposition home or self-care (01) ==
LOC: BIMLAB 09:46
PROVIDERS: PCP Internal Medicine; Referring Provider Internal Medicine; Visit Provider Internal Medicine
DX: M81.0 Age-related osteoporosis without current pathological fracture (principal); K21.9 Gastro-esophageal reflux disease without esophagitis
CPT/HCPCS: 36415; 80053; 82306

== ENCOUNTER → 2025-03-22 | Outpatient (CLI) | payer BC, SELFPAY ==
--- NOTE | 2025-03-22 14:45 | BI_ITS ---
EXAM: SCRN MAMM (CAD)W/RICKEY BILAT DATE: 03/22/2025 CLINICAL HISTORY: F, Age 74 y/o , BREAST CANCER SCREENING TECHNIQUE: Procedure Code: [id number] Modality: MG Procedure: SCRN MAMM (CAD)W/RICKEY BILAT COMPARISON: Prior exam(s) were compared FINDINGS: TISSUE DENSITY: There are scattered areas of fibroglandular density. Bilateral Breast Mammographic Findings: No suspicious masses, calcifications or other abnormalities are identified. BI/SCRN MAMM (CAD)W/RICKEY BILAT IMPRESSION: No mammographic evidence of malignancy in either breast. OVERALL FINAL ASSESSMENT BI-RADS 1: NEGATIVE. RECOMMENDATION: Routine annual follow-up in 1 Year Additional Recommendation none A letter with findings and recommendations will be mailed to the patient. Reading Location: [id number]
--- OUTSIDE RECORDS SUMMARY | 2025-03-22 14:56 | XMS RPT_ITS | CCD ---
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 Kasey Cisneros Primary Care Provider [phone] Dr. Kasey Cisneros Attending Provider [phone] Dr. Kasey Cisneros Referring Provider [phone] Amelia ELY, Dr. Parks Primary Care Physician KIRA SIFUENTES Attending Physician KIRA SIFUENTES Referring Provider Amelia ELY, Dr. Parks Attending Physician [phone] Dr. Kasey Cisneros MD Referring Provider [phone] Oleberthae, Efewongbe Referring Unavailable Oleghe, Efewongbe Attending Unavailable Oleghe, Efewongbe Primary Care Unavailable Oleghe, Efewongbe Primary Care Unavailable RYAN DOMINGO Referring Unavailable RYAN DOMINGO Attending Unavailable Oleghe, Efewongbe Referring Unavailable Oleghe, Efewongbe Attending Unavailable Oleghe, Efewongbe Primary Care Unavailable Oleghe, Efewongbe Referring Unavailable Oleghe, Efewongbe Attending Unavailable Oleghe, Efewongbe Primary Care Unavailable Medications Current Medications Medication Drug Class(es) Dates Sig (Normalized) Sig (Original) brimonidine tartrate 0.25 mg/ml ophthalmic solution (5 sources) alpha-Adrenergic Agonist Start: 08-12-2019 dorzolamide 20 mg/ml / timolol 5 mg/ml ophthalmic solution (5 sources) Carbonic Anhydrase Inhibitor, beta-Adrenergic Oumar Start: 08-12-2019 Start: 08-12-2019 Dorzolamide-Ti molol Active 1 DRP OPHTHALMIC TWICE A DAY August 12, 2019 12:00am latanoprostene bunod 0.24 mg /ml ophthalmic solution (5 sources) Start: 08-12-2019 take 0.024 drop(s) i nto the eye(s) once daily Start: 08-12-2019 take 0.024 drop(s) i nto the eye(s) once daily Latanoprostene Bunod (Vyzulta) 0.024 % drops Active 1 DRP OPHTHALMIC DAILY August 12, 2019 12:00am netarsudil 0.2 mg/ml ophthalmic solution (5 sources) Rho Kinase Inhibitor Start: 08-12-2019 take 0.02 drop(s) into the eye(s) once daily in the evening Start: 08-12-2019 take 0.02 drop(s) in to the eye(s) once daily in the evening Netarsudil (Rhopressa) 0.02 % drops Active 1 DRP OPHTHALMIC EVERY EVENING August 12, 2019 12:00am Plantar Fasciitis Night Spli nt (10 sources) Start: 09-20-2021 Plantar Fascii tis Night Splint Active 0 .Route .MEDSUPPLY 1 0 September 20, 2021 10:39am Plantar fasciitis Plantar fascial fibromatosis Wear nightly Start: 09-20-2021 Plantar Fascii tis Night Splint Active 0 .Route .MEDSUPPLY 1 September 20, 2021 10:39am Wear nightly Start: 09-20-2021 Plantar Fascii tis Night Splint Active 0 .Route .MEDSUPPLY 1 September 20, 2021 9:39am Wear nightly Start: 09-20-2021 End: 09-20-2021 Plantar Fasciitis Night Spli nt Discontinued 0 .Route .MEDSUPPLY 1 0 September 20, 2021 12:00am September 20, 2021 10:39am Plantar fasciitis Plantar fascial fibromatosis Wear nightly Start: 09-20-2021 End: 09-20-2021 Plantar Fasciitis Night Spli nt Discontinued 0 .Route .MEDSUPPLY 1 September 20, 2021 12:00am September 20, 2021 10:39am Wear nightly Start: 09-20-2021 End: 09-20-2021 Plantar Fasciitis Night Spli nt Discontinued 0 .Route .MEDSUPPLY 1 September 19, 2021 11:00pm September 20, 2021 9:39am Wear nightly Completed/Discontinued Medications Medication Drug Class(es) Dates Sig (Normalized) Sig (Original) 1 ml denosumab 60 mg/ml prefilled syringe (5 sources) RANK Ligand Inhibitor Start: 02-29-2020 End: 07-02-2023 Denosumab (Prolia) 60 mg/mL syringe Discontinued 60 mg SC every 6 months 1 4 February 29, 2020 12:00am July 02, 2023 3:35pm famotidine 40 mg oral tablet (15 sources) Histamine-2 Receptor Antagonist Start: 09-01-2019 End: 02-29-2020 take 1 tablet by mouth once daily Famotidine 40 mg tablet Discontinued 40 mg PO DAILY 90 3 February 29, 2020 2:54pm February 29, 2020 2:55pm hydrocortisone 25 mg/ml topical cream (5 sources) Corticosteroid Start: 08-31-2019 End: 02-29-2020 Hydrocortisone 2.5 % cream Discontinued 1 NMA TOPICAL TWICE A DAY as needed for rash 28.35 0 August 31, 2019 12:00am February 29, 2020 2:28pm raNITIdine 150 mg oral tablet (5 sources) Histamine-2 Receptor Antagonist Start: 08-31-2019 End: 09-01-2019 take 1 tablet by mouth once daily Ranitidine Hcl 150 mg tablet Discontinued 150 mg PO DAILY 90 3 August 31, 2019 12:00am September 01, 2019 5:56pm Problems Active Problems Problem Classification Problem Date Documented Date Episodic/Chronic Abdominal hernia (5 sources) Hiatal hernia; Translations: [Diaphragmatic hernia without obstruction or gangrene] 08-31-2019 Episodic Blindness and vision defects (5 sources) Visual impairment; Translations: [Unspecified visual loss] 08-31-2019 Chronic Cardiac dysrhythmias (11 sources) Palpitations; Translations: [Palpitations] Onset: 03-07-2025 07-02-2023 Episodic Cataract (5 sources) Bilateral cataracts; Translations: [Unspecified cataract] 08-31-2019 Chronic Disorders of lipid metabolism (8 sources) Hyperlipidemia; Translations: [Hyperlipidemia, unspecified] 08-31-2019 Chronic Esophageal disorders (15 sources) Gastroesophageal reflux disease; Translations: [Gastro-esophageal reflux disease without esophagitis] Onset: 03-07-2025 07-02-2023 Chronic Essential hypertension (11 sources) Hypertensive disorder; Translations: [Essential (primary) hypertension] Onset: 03-07-2025 07-02-2023 Chronic Fracture of lower limb (3 sources) Fracture of lateral malleolus; Translations: [Displaced fracture of lateral malleolus of unspecified fibula, initial encounter for closed fracture] 08-26-2023 Episodic Glaucoma (7 sources) Glaucoma; Translations: [Unspecified glaucoma] Onset: 03-07-2025 08-31-2019 Chronic Osteoporosis (7 sources) Osteoporosis; Translations: [Age-related osteoporosis without current pathological fracture] Onset: 03-18-2025 02-29-2020 Chronic Other ear and sense organ disorders (5 sources) Hearing loss; Translations: [Unspecified hearing loss, unspecified ear] 08-31-2019 Chronic Other ear and sense organ disorders (5 sources) Does use hearing aid; Translations: [Presence of external hearing-aid] 08-31-2019 Episodic Other non-traumatic joint disorders (3 sources) Ankle pain; Translations: [Pain in right ankle and joints of right foot] 08-20-2023 Episodic Other non-traumatic joint disorders (1 source) Pain in right ankle and joints of right foot; Translations: [Pain in joint, ankle and foot] 08-20-2023 Episodic Other screening for suspected conditions (not mental disorders or infectious disease) (4 sources) Electrocardiogram abnormal; Translations: [Abnormal electrocardiogram [ECG] [EKG]] Onset: 03-14-2025 08-20-2023 Episodic Systemic lupus erythematosus and connective tissue disorders (1 source) Other giant cell arteritis; Translations: [Other giant cell arteritis] Onset: 03-08-2025 Chronic Past or Other Problems Problem Classification Problem Date Documented Da te Episodic/Chronic Unclassified (5 sources) bone fractures 08-31-2019 Results Test Name Value Interpretation Reference Range Facility Anion gap in Serum or Plasma Ordered By: Kasey Cisneros on 03-07-2025 Anion gap [Moles/Vol] 11 mmol/L 10-14 [facility] BUN/creatinine ratioOrdered By: Kasey Cisneros on 03-07-2025 Urea nitrogen/Creatinine [Mass ratio] 16.0 mg/mg 03-21 [facility] Bilirubin, totalOrdered By: Kasey Cisneros on 03-07-2025 Bilirubin [Mass/Vol] 0.37 mg/dL 0.00-1.[address] [facility] Carbon dioxide, total [Moles /volume] in Central venous bloodOrdered By: Kasey Cisneros on 03-07-2025 CO2 [Moles/Vol] 22.0 mmol/L 21.0-32.0 [facility] Chloride assayOrdered By: Agapito Cisneros on 03-07-2025 Chloride [Moles/Vol] 106 mmol/L 98-[address] [facility] Comprehensive Metabolic Prof ilon 03-07-2025 Albumin [Mass/Vol] 4.1 g/dL Normal 3.4-4.8 [facility] Comment on above: Performed By: #### L 506.1001, L500.4050 #### [facility] [address] [place], [address] Albumin/Globulin [Mass ratio] 1.7 {ratio} Normal 0.9-2.4 [facility] Comment on above: Performed By: #### L 506.1001, L500.4050 #### [facility] [address] [place], [address] ALK PHOS 81 U/L Normal 35-104 [facility] Comment on above: Performed By: #### L 506.1001, L500.4050 #### [facility] [address] [place], [address] ALT [Catalytic activity/Vol] 14 U/L Normal <=34 [facility] Comment on above: Performed By: #### L 506.1001, L500.4050 #### [facility] [address] [place], [address] AST [Catalytic activity/Vol] 20 U/L Normal <=31 [facility] Comment on above: Performed By: #### L 506.1001, L500.4050 #### [facility] [address] [place], [address] Bilirubin [Mass/Vol] 0.37 mg/dL Normal 0.00-1.[address] [facility] Comment on above: Performed By: #### L 506.1001, L500.4050 #### [facility] [address] [place], [address] BUN/CRE 16.0 RATIO Normal 10-20 [facility] Comment on above: Performed By: #### L 506.1001, L500.4050 #### [facility] [address] [place], [address] Calcium [Mass/Vol] 9.8 mg/dL Normal 7.6-11.0 [facility] Comment on above: Performed By: #### L 506.1001, L500.4050 #### [facility] [address] [place], [address] Chloride [Moles/Vol] 106 mmol/L Normal 98-[address] [facility] Comment on above: Performed By: #### L 506.1001, L500.4050 #### [facility] [address] [place], [address] CO2 [Moles/Vol] 22.0 mmol/L Normal 21.0-32.0 [facility] Comment on above: Performed By: #### L 506.1001, L500.4050 #### [facility] [address] [place], [address] Creatinine [Mass/Vol] 0.69 mg/dL Low 0.70-1.20 [facility] Comment on above: Performed By: #### L 506.1001, L500.4050 #### [facility] [address] [place], [address] GAP 11 Normal 5-15 [facility] Comment on above: Performed By: #### L 506.1001, L500.4050 #### [facility] [address] [place], [address] GFR/1.73 sq M.predicted among non-blacks MDRD (S/P/Bld) [Vol rate/Area] 92 mL/min/{1.73_m2} Normal >60 [facility] Comment on above: Result Comment: mL/m in/1.73m2 CKD-EPI Creatinine Equation (2020) Performed By: #### L 506.1001, L500.4050 #### [facility] [address] [place], [address] Globulin (S) [Mass/Vol] 2.3 g/dL Normal 2.2-4.2 [facility] Comment on above: Performed By: #### L 506.1001, L500.4050 #### [facility] [address] [place], [address] Glucose [Mass/Vol] 85 mg/dL Normal 70-99 [facility] Comment on above: Performed By: #### L 506.1001, L500.4050 #### [facility] [address] [place], [address] Potassium [Moles/Vol] 4.1 mmol/L Normal 3.3-5.1 [facility] Comment on above: Performed By: #### L 506.1001, L500.4050 #### [facility] [address] [place], [address] Sodium [Moles/Vol] 140 mmol/L Normal 133-145 [facility] Comment on above: Performed By: #### L 506.1001, L500.4050 #### [facility] [address] [place], [address] T PROT 6.4 g/dL Normal 5.9-8.4 [facility] Comment on above: Performed By: #### L 506.1001, L500.4050 #### [facility] [address] [place], [place], [address] Urea nitrogen [Mass/Vol] 11 mg/dL Normal 4-19 [facility] Comment on above: Performed By: #### L 506.1001, L500.4050 #### [facility] [address] [place], [place], [id number] Glomerular filtration rate ( GFR) estimation/1.73 sq m using serum, plasma, or whole bOrdered By: Kasey Cisneros on 03-07-2025 GFR/1.73 sq M.predicted among non-blacks MDRD (S/P/Bld) [Vol rate/Area] 92 mL/min/{1.73_m2} >60 [facility] Comment on above: mL/min/1.73m2 CKD-EP I Creatinine Equation (2020) Internal Medicine Office Vis iton 03-07-2025 Internal Medicine Office Visit [facility] Internal Medicine [address] [place], [place] [address] OFFICE VISIT Date of Service: 03/07/25 MR#: [id number] Acct: [id number] Name: JAMES ABRAMS Rep #: [id number] : 1950 Provider: Dr. Kasey barboza MD Age/Sex: 74/F Location: [facility] Status: Signed Intake Vital Signs 09/01/23 10:54 03/07/25 09:26 Height 5 ft 2.5 in 5 ft 2.5 in Weight: 148 lb BMI 26.6 BP 130/78 H Blood Pressure Location Lt brachial Position Sitting Respiration 18 Pulse 74 Pulse Source Monitor Temp 96.8 F L Temp Source Temporal Pulse Oximetry (%) 98 Oxygen Delivery Method room air Intake Visit Reasons: General check up/FU Chief Complaint: General check up/FU Is patient in pain?: No Allergies No Known Allergies Allergy (Verified 03/07/25 09:27) Medications ???Medication ???Instructions ???Recorded ???Confirmed ???Type brimonidine 0.025 % eye drops 1 drp ophthalmic (eye) BID-QID PRN 08/12/19 03/07/25 History dorzolamide 22.3 mg-timolol 6.8 1 drp ophthalmic (eye) BID 0 03/07/25 History mg/mL eye drops latanoprostene bunod 0.024 % eye 1 drp ophthalmic (eye) DAILY 08/1103/07/25 History drops (Vyzulta) netarsudil 0.02 % eye drops 1 drp ophthalmic (eye) QPM 0 03/07/25 History (Rhopressa) famotidine 40 mg tablet 40 mg PO DAILY #90 tabs 02/29/20 1 Rx Plantar Fasciitis Night Splint #1 ea 09/20/21 03/07/25 Rx Have you fallen in the past year?: Yes (x3 slipped/tripped ) Nurse's Note: pt declines influenza immunization at this time. [facility] Medical History (Updated 03/07/25 @ 10:[address] Kasey Cisneros MD) Health care maintenance Abnormal EKG Right ankle pain Palpitations Hypertension Wears hearing aid Hiatal hernia GERD (gastroesophageal reflux disease) Vision decreased Hearing deficit Glaucoma (increased eye pressure) Cataracts, bilateral bone fractures Surgical History History of ear surgery Tumor [...] times per week HPI HPI Chief Complaint: General check up/FU Details: JAMES ABRAMS, is a 74-year-old female presenting for an annual visit. No acute concerns at this time. 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 Recently, she experienced a large, unusual flash that woke her from sleep with pain, along with occasional stabbing pain in her latter day, which prompted a visit to her eye doctor. A retinal issue was ruled out, and a blood test ordered at that time to investigate for infection or another condition but was ultimately found to be normal. No visual concerns reported at this time. The patient has a history of osteoporosis but refuses to take medication for it due to a lack of trust in the available treatments. She has tried taking calcium supplements in the past, but they bothered her stomach. Her vitamin D level was checked in the past and was found to be borderline. Her blood pressure remains borderline, and she is not on any medication for it. Her plastic sheets finishing supervisor recommended walking for half an hour a day to help lower her eye pressure, which she has started doing. Approximately a year and a half ago, she experienced heart palpitations, which resolved after she stopped drinking iced tea in the afternoons. The patient has a history of skin cancer, attributed to living in [place] for 30 years, and has a Mohs surgery scheduled for her back in April. She takes famotidine as needed. Her last mammogram was five years ago. She feels well otherwise. Attestation: Documentation on this patient encounter was supported using ambient scribe technology/ voice AI technology. The patient consented to recording for the purpose of documenting the encounter. Provider reviewed content of the generated note prior to signature. ROS Const Constitutional: No body ache, chills, excessive sweating, fatigue, fever(s), frequent falls, headache(s), snoring, weight change, sleep problems, abnormal sleep pattern or change in appetite Eyes Eyes: No blurry vision, change in vision, vision loss, dry eyes, eye pain or Light sensitivity ENT ENT: No abnormal hearing, ear or m (more content not included)... Normal [facility] - Chemistry and C hemistry - challengeOrdered By: Kasey Cisneros on 03-07-2025 AST [Catalytic activity/Vol] 20 U/L <32 [facility] Potassium measurement (mass/ volume)Ordered By: Kasey Cisneros on 03-07-2025 Potassium (Unsp spec) [Mass/Vol] 4.1 mmol/L 3.3-5.1 [facility] Serum creatinine measurement (mass/volume)Ordered By: Kasey Cisneros on 03-07-2025 Creatinine [Mass/Vol] 0.69 mg/dL Low 0.70-1.20 [facility] Serum globulin measurementOr dered By: Kasey Cisneros on 03-07-2025 Globulin (S) [Mass/Vol] 2.3 g/dL 2.2-4.2 [facility] Serum glucose measurement (m ass/volume)Ordered By: Kasey Cisneros on 03-07-2025 Glucose [Mass/Vol] 85 mg/dL 70-99 [facility] Serum or plasma alanine camargo otransferase (ALT) measurementOrdered By: Kasey Cisneros on 03-07-2025 ALT [Catalytic activity/Vol] 14 U/L <35 [facility] Serum or plasma albumin rosemarie urement (mass/volume)Ordered By: Kasey Cisneros on 03-07-2025 Albumin [Mass/Vol] 4.1 g/dL 3.4-4.8 [facility] Serum or plasma albumin/glob ulin mass ratioOrdered By: Kasey Cisneros on 03-07-2025 Albumin/Globulin [Mass ratio] 1.7 {ratio} 0.9-2.4 [facility] Serum or plasma alkaline berenice sphatase measurementOrdered By: Kasey Cisneros on 03-07-2025 ALP [Catalytic activity/Vol] 81 U/L 35-104 [facility] Serum or plasma calcium rosemarie urement (mass/volume)Ordered By: Kasey Cisneros on 03-07-2025 Calcium [Mass/Vol] 9.8 mg/dL 7.6-11.0 [facility] Serum or plasma urea nitroge n measurement (mass/volume)Ordered By: Kasey Cisneros on 03-07-2025 Urea nitrogen [Mass/Vol] 11 mg/dL 4-19 [facility] Sodium levelOrdered By: Pedro Cisneros on 03-07-2025 Sodium [Moles/Vol] 140 mmol/L 133-145 [facility] Total proteinOrdered By: Arturo Cisneros on 03-07-2025 Protein [Mass/Vol] 6.4 g/dL 5.9-8.4 [facility] Vitamin D,25 Hydroxyon 03-07 Vitamin D 25-OH 25.3 ng/mL Low 30-100 [facility] Comment on above: Result Comment: Nancy min D Status Deficiency: <20 ng/mL (50nmol/L) Insufficiency: 20-30 ng/mL (50-75 nmol/L) Sufficiency: 30-100 ng/mL (75-250 nmol/L) Toxicity: >100 ng/mL (>250 nmol/L) Performed By: #### L 506.1001, L500.4050 #### [facility] [address] [place], [address] CBC-Complete Blood Cnt No Di ffon 02-25-2025 Erythrocyte distribution width (RBC) [Ratio] 12.7 % Normal 11.6-14.6 [facility] Comment on above: Performed By: #### L 300.4700, L100.0500, L501.6710, L101.9900 #### [facility] [address] [place], [address] Hematocrit (Bld) [Volume fraction] 42.9 % Normal 37-47 [facility] Comment on above: Performed By: #### L 300.4700, L100.0500, L501.6710, L101.9900 #### [facility] [address] [place], [address] Hemoglobin (Bld) [Mass/Vol] 14.5 g/dL Normal 12.0-15.0 [facility] Comment on above: Performed By: #### L 300.4700, L100.0500, L501.6710, L101.9900 #### [facility] [address] [place], [address] MCH (RBC) [Entitic mass] 28.9 pg Normal 27.0-32.0 [facility] Comment on above: Performed By: #### L 300.4700, L100.0500, L501.6710, L101.9900 #### [facility] [address] [place], [address] MCHC (RBC) [Mass/Vol] 33.8 g/dL Normal 32-36 [facility] Comment on above: Performed By: #### L 300.4700, L100.0500, L501.6710, L101.9900 #### [facility] [address] [place], [address] MCV (RBC) [Entitic vol] 85.5 fL Normal 81-99 [facility] Comment on above: Performed By: #### L 300.4700, L100.0500, L501.6710, L101.9900 #### [facility] [address] [place], [address] Platelet mean volume (Bld) [Entitic vol] 10.8 fL Normal 6.2-12.0 [facility] Comment on above: Performed By: #### L 300.4700, L100.0500, L501.6710, L101.9900 #### [facility] [address] [place], [address] Platelets (Bld) [#/Vol] 354 10*3/uL Normal 150-450 [facility] Comment on above: Performed By: #### L 300.4700, L100.0500, L501.6710, L101.9900 #### [facility] [address] [place], [address] RBC (Bld) [#/Vol] 5.02 10*6/uL Normal 4.2-5.4 [facility] Comment on above: Performed By: #### L 300.4700, L100.0500, L501.6710, L101.9900 #### [facility] [address] [place], [address] RDW SD 39.6 fl Normal 35.1-43.9 [facility] Comment on above: Performed By: #### L 300.4700, L100.0500, L501.6710, L101.9900 #### [facility] [address] [place], [address] WBC (Bld) [#/Vol] 8.3 10*3/uL Normal 4.4-11.0 [facility] Comment on above: Performed By: #### L 300.4700, L100.0500, L501.6710, L101.9900 #### [facility] [address] [place], [address] CRPon 02-25-2025 C-REACTIVE PROT < 3.00 Normal 0.0-3.0 [facility] Comment on above: Performed By: #### L 300.4700, L100.0500, L501.6710, L101.9900 #### [facility] [address] [place], [address] Erythrocyte Sed Rateon 02-25 SED RATE 6 mm/hr Normal 0-30 [facility] Comment on above: Performed By: #### L 300.4700, L100.0500, L501.6710, L101.9900 #### [facility] [address] [place], [address] Erythrocyte distribution wid th ratioon 02-25-2025 Erythrocyte distribution width (RBC) [Ratio] 12.7 % 11.6-14.6 [facility] Erythrocyte distribution wid th standard deviationon 02-25-2025 Erythrocyte distribution width (RBC) [Ratio] 39.6 fl 35.1-43.9 [facility] Erythrocyte sedimentation ra madai 02-25-2025 ESR (Bld) [Velocity] 6 mm/h 0-[address] [facility] Fibrinogenon 02-25-2025 FIBRINOGEN 356 mg/dl Normal 203-444 [facility] Comment on above: Performed By: #### L 300.4700, L100.0500, L501.6710, L101.9900 #### [facility] [address] [place], [address] Hematocrit Auto (Bld) [Volum e fraction]on 02-25-2025 Hematocrit (Bld) [Volume fraction] 42.9 % 37-47 [facility] Hemoglobin measurementon Hemoglobin (Bld) [Mass/Vol] 14.5 g/dL 12.0-15.0 [facility] MCV (mean corpuscular volume ) determinationon 02-25-2025 MCV (RBC) [Entitic vol] 85.5 fL 81-99 [facility] Mean corpuscular hemoglobin (MCH) determinationon 02-25-2025 MCH (RBC) [Entitic mass] 28.9 pg 27.0-32.0 [facility] Mean corpuscular hemoglobin concentration (MCHC) determinationon 02-25-2025 MCHC (RBC) [Mass/Vol] 33.8 g/dL 32-36 [facility] Mean platelet volume determi nationon 02-25-2025 Platelet mean volume (Bld) [Entitic vol] 10.8 fL 6.2-12.0 [facility] Platelet counton 02-25-2025 Platelets (Bld) [#/Vol] 354 10*3/uL 150-450 [facility] RBC Auto (Bld) [#/Vol]on RBC (Bld) [#/Vol] 5.02 10*6/uL 4.2-5.4 [facility] Serum or plasma C reactive p rotein measurement (mass/volume)on 02-25-2025 CRP [Mass/Vol] mg/L 0.0-3.0 [facility] White blood cell (WBC) count on 02-25-2025 WBC (Bld) [#/Vol] 8.3 10*3/uL 4.4-11.0 [facility] Absolute lymphocyte countOrd ered By: Kasey Cisneros on 07-02-2023 Lymphocytes Auto (Unsp spec) [#/Vol] 1.96 10*3/uL 0.83-4.51 [facility] Automated lymphocyte count a s percentage of total leukocytesOrdered By: Kasey Cisneros on 07-02-2023 Lymphocytes/100 WBC Auto (Unsp spec) 25.1 % 19-41 [facility] Basophil percentageOrdered B y: Kasey Cisneros on 07-02-2023 Basophils/100 WBC (Bld) 1.2 % 0-1 [facility] Bilirubin [Mass/Vol] 0.30 mg/dL 0.20-1.[address] [facility] Comment on above: For patients on eltr ombopag therapy, use of Dimension [place] TBIL is not recommended. Chloride [Moles/Vol] 108 mmol/L 98-[address] [facility] Cholesterol [Mass/Vol] 216 mg/dL <200 [facility] Comment on above: <200 mg/dL Desirable 200-240 mg/dL Borderline >240 mg/dL High Risk Eosinophils/100 WBC (Bld) 2.4 % 0-5 [facility] Glucose [Mass/Vol] 95 mg/dL 74-106 [facility] Hemoglobin (Bld) [Mass/Vol] 14.2 g/dL 12.0-15.0 [facility] Monocytes/100 WBC (Bld) 7.3 % 0-10 [facility] Neutrophils (Bld) [#/Vol] 5.0 10*3/uL 2.0-7.7 [facility] Neutrophils/100 WBC (Bld) 63.7 % 47-70 [facility] Potassium [Moles/Vol] 4.4 mmol/L 3.5-5.1 [facility] Protein [Mass/Vol] 6.8 g/dL 6.4-8.2 [facility] Sodium [Moles/Vol] 137 mmol/L 136-145 [facility] Triglyceride [Mass/Vol] 127 mg/dL <199 [facility] Comment on above: The drugs N-Acetylcy steine and Metamizole may falsely depress this assay.Serum Triglycerides Reference Interval Normal <150 mg/dL Borderline high 150 - 199 mg/dL High 200 - 499 mg/dL Very High > or = 500 mg/dL WBC (Bld) [#/Vol] 7.8 10*3/uL 4.4-11.0 [facility] Determination of erythrocyte mean corpuscular volume (MCV)Ordered By: Kasey Cisneros on 07-02-2023 MCV (RBC) [Entitic vol] 87.1 fL 81-99 [facility] Erythrocyte distribution wid th ratioOrdered By: [facility] on 07-02-2023 Erythrocyte distribution width (RBC) [Ratio] 12.9 % 11.6-14.6 [facility] Erythrocyte distribution wid th standard deviationOrdered By: [facility] Alfreditoalex on 07-02-2023 Erythrocyte distribution width (RBC) [Entitic vol] 41.3 fL 35.1-43.9 [facility] Hematocrit Auto (Bld) [Volum e fraction]Ordered By: [facility] lAfreditoalex on 07-02-2023 Hematocrit (Bld) [Volume fraction] 43.4 % 37-47 [facility] Immature granulocytes/100 WB C Auto (Bld)Ordered By: [facility] on 07-02-2023 Immature granulocytes/100 WBC (Bld) 0.300 % 0.0-0.9 [facility] Comment on above: IG% - Immature Granu locytes (promyelocytes, myelocytes and metamyelocytes) > 1% indicates that a LEFT SHIFT is Present. Laboratory - Chemistry and C hemistry - challengeOrdered By: [facility] Gl[facility] on 07-02-2023 Albumin/Globulin [Mass ratio] 1.2 {ratio} 0.9-2.4 [facility] ALP [Catalytic activity/Vol] 94 U/L 45-117 [facility] ALT [Catalytic activity/Vol] 25 U/L 13-56 [facility] Cholesterol in HDL (Body fld) [Mass/Vol] 86 mg/dL >40 [facility] Comment on above: The drugs N-Acetylcy steine and Metamizole may falsely depress this assay. Reference Range HDL <40 mg/dL Low HDL Cholesterol HDL >or= 60 mg/dL High HDL Cholesterol Cholesterol in LDL (Body fld) [Moles/Vol] 105 mg/dL 0-130 [facility] Cholesterol in VLDL Calc [Moles/Vol] 25 mg/dL 5-40 [facility] CO2 [Moles/Vol] 30.0 mmol/L 21.0-32.0 [facility] Globulin (S) [Mass/Vol] 3.1 g/dL 2.2-4.2 [facility] Urea nitrogen/Creatinine [Mass ratio] 24.5 mg/mg 10-20 [facility] Laboratory - Hematology and Cell countsOrdered By: Kasey Cisneros on 07-02-2023 MCH (RBC) [Entitic mass] 28.5 pg 27.0-32.0 [facility] MCHC (RBC) [Mass/Vol] 32.7 g/dL 32-36 [facility] Nucleated RBC/100 WBC (Bld) [Ratio] 0 % 0-5 [facility] Platelets (Bld) [#/Vol] 335 10*3/uL 150-450 [facility] No Panel InformationOrdered By: Kasey Cisneros on 07-02-2023 Estimated GFR (MDRD) Amer 115 mL/min >60 [facility] Comment on above: GFR Calc Estimated GFR (MDRD) Non-Af Amer 95 mL/min >60 [facility] Comment on above: Non- GFR Calc Platelet mean volume Alex-Ec ker (Bld) [Entitic vol]Ordered By: Kasey Cisneros on 07-02-2023 Platelet mean volume (Bld) [Entitic vol] 10.7 fL 6.2-12.0 [facility] RBC Auto (Bld) [#/Vol]Ordere d By: Kasey Cisneros on 07-02-2023 RBC (Bld) [#/Vol] 4.98 10*6/uL 4.2-5.4 [facility] Serum or plasma calcium rosemarie urement (mass/volume)Ordered By: Kasey Cisneros on 07-02-2023 Calcium [Mass/Vol] 9.6 mg/dL 8.5-10.1 [facility] Serum or plasma creatinine m easurement (mass/volume)Ordered By: Kasey Cisneros on 07-02-2023 Creatinine [Mass/Vol] 0.65 mg/dL 0.55-1.02 [facility] Comment on above: The validity of the calculated GFR & GFRAA in patients over 70 years has not been determined. Clinical correlation is essential. Serum or plasma thyroid stim ulating hormone (TSH) measurement (units/volume)Ordered By: Kasey Cisneros on 07-02-2023 TSH Qn 0.63 uIU/mL 0.358-3.74 [facility] Serum or plasma urea nitroge n measurement (mass/volume)Ordered By: Kasey Cisneros on 07-02-2023 Urea nitrogen [Mass/Vol] 16 mg/dL 7-18 [facility] Thin prep Papanicolaou smear with manual screeningOrdered By: Kasey Cisneros on 07-02-2023 Thin prep Papanicolaou smear with manual screening 3.7 g/dL 3.2-5.0 [facility] Thin prep Papanicolaou smear with manual screening 16 U/L 15-37 [facility] Thin prep Papanicolaou smear with manual screening -1 5-15 [facility] Thin prep Papanicolaou smear with manual screening 0.95 ng/dL 0.76-1.46 [facility] Vital Signs Date Time Vital Sign Value Performing Clinician Ashley hendricks 03-07-2025 09:26-0400 Body height 158.[address] Kasey Cisneros MD Work Phone: [facility] 03-07-2025 09:26-0400 Body mass index (BMI) [Ratio] 26.6 kg/m2 Dr. Kasey Cisneros MD Work Phone: [facility] 03-07-2025 09:26-0400 Body temperature 96.8 [degF] Dr. Kasey Cisneros MD Work Phone: [facility] 03-07-2025 09:26-0400 Body weight 67.[address] Kasey Cisneros MD Work Phone: [facility] 03-07-2025 09:26-0400 Diastolic blood pressure 78 mm[Hg] Dr. Kasey Cisneros MD Work Phone: [facility] 03-07-2025 09:26-0400 Heart rate 74 /min Dr. Kasey Cisneros MD Work Phone: [facility] 03-07-2025 09:26-0400 Respiratory rate 18 /min Dr. Kasey Cisneros MD Work Phone: [facility] 03-07-2025 09:26-0400 SaO2% (BldA) [Mass fraction] 98 % Dr. Kasey Cisneros MD Work Phone: [facility] 03-07-2025 09:26-0400 Systolic blood pressure 130 mm[Hg] Dr. Kasey Cisneros MD Work Phone: [facility] 08-20-2023 15:14-0400 Body height 158.[address] Kasey Cisneros Work Phone: [facility] 08-20-2023 15:14-0400 Body temperature 97.6 [degF] Dr. Kasey Cisneros Work Phone: [facility] 08-20-2023 15:14-0400 Diastolic blood pressure 88 mm[Hg] Dr. Kasey Cisneros Work Phone: [facility] 08-20-2023 15:14-0400 Heart rate 79 /min Dr. Kasey Cisneros Work Phone: [facility] 08-20-2023 15:14-0400 Respiratory rate 16 /min Dr. Kasey Cisneros Work Phone: [facility] 08-20-2023 15:14-0400 SaO2% (BldA) [Mass fraction] 99 % Dr. Kasey Cisneros Work Phone: [facility] 08-20-2023 15:14-0400 Systolic blood pressure 130 mm[Hg] Dr. Kasey Cisneros Work Phone: [facility] 07-02-2023 14:35-0500 Body height 158.[address] Kasey Cisneros Work Phone: [facility] 07-02-2023 14:35-0500 Body mass index (BMI) [Ratio] 25.9 kg/m2 Dr. Kasey Cisneros Work Phone: [facility] 07-02-2023 14:35-0500 Body temperature 97.7 [degF] Dr. Kasey Cisneros Work Phone: [facility] 07-02-2023 14:35-0500 Body weight 65.[address] Kasey Cisneros Work Phone: [facility] 07-02-2023 14:35-0500 Diastolic blood pressure 88 mm[Hg] Dr. Kasey Cisneros Work Phone: [facility] 07-02-2023 14:35-0500 Heart rate 69 /min Dr. Kasey Cisneros Work Phone: [facility] 07-02-2023 14:35-0500 Respiratory rate 16 /min Dr. Kasey Cisneros Work Phone: [facility] 07-02-2023 14:35-0500 SaO2% (BldA) [Mass fraction] 99 % Dr. Kasey Cisneros Work Phone: [facility] 07-02-2023 14:35-0500 Systolic blood pressure 138 mm[Hg] Dr. Kasey Cisneros Work Phone: [facility] Encounters Encounter Date Encounter Type Care Provider Facility Start: 03-22-2025 ambulatory Kasey Marianoi ty:[facility] Start: 03-07-2025 Encounter for genera l adult medical examination without abnormal findings Kasey Cisneros [facility] Start: 03-07-2025 End: 03-07-[address] Kasey Cisneros MD -[facility] Work Phone: Start: 03-07-2025 End: 03-07-[address] Kasey Cisneros MD [facility] Start: 03-07-2025 End: 03-07-[address] Kasey Cisneros MD Work Phone: -[facility] Start: 03-07-2025 End: 03-07-2025 ambulatory Kasey Cisneros Facility:[facility] Start: 02-25-2025 End: 02-25-[address] Kasey Cisneros MD Work Phone: [facility] [place] Work Phone: Start: 02-25-2025 End: 02-25-[address] Kasey Cisneros MD Work Phone: -[facility] [place] Start: 08-21-2023 End: 08-21-[address] Kasey Cisneros Work Phone: [facility] Work Phone: Start: 08-21-2023 End: 08-21-[address] Kasey Cisneros Work Phone: [facility]-Radiology, [place] Work Phone: Start: 08-20-2023 End: 08-20-[address] Kasey Cisneros Work Phone: [facility] Work Phone: Start: 07-29-2023 End: 07-29-[address] Kasey Cisneros Work Phone: [facility] Work Phone: Start: 07-29-2023 End: 07-29-[address] Kasey Cisneros Work Phone: [facility]-Pulmonary Services/Neurology Work Phone: Start: 07-02-2023 End: 07-02-[address] Kasey Cisneros Work Phone: [facility] Work Phone: Start: 07-02-2023 End: 07-02-[address] Kasey Cisneros Work Phone: [facility] Work Phone: Procedures Date Procedure Procedure Detail Performing Clinician Start: 03-07-2025 Vitamin D, 25-hydrox y measurement Dr. Kasey Cisneros MD Work Phone: Comment on above: Vitamin D StatusDefi ciency: <20 ng/mL (50nmol/L)Insufficiency: 20-30 ng/mL (50-75 nmol/L)Sufficiency: 30-100 ng/mL (75-250 nmol/L)Toxicity: >100 ng/mL (>250 nmol/L) Start: 02-25-2025 Fibrinogen assay, quantitative Dr. Kasey Cisneros MD Work Phone: Start: 08-21-[address] Kasey Cisneros Work Phone: Start: 08-21-[address] Ervin Cisneros Work Phone: Plan of Treatment Date Care Activity Detail Author Start: 08-20-2023 [facility] study results [facility] Start: 07-02-2023 [facility] study results [facility] Ambulatory ECG [facility] MG Breast - bilateral Screening [facility] NM Heart Views W str ess and W radionuclide IV [facility] Immunizations Immunization Date Immunization Notes Care Provider Fa ariesty 02-29-2020 influenza, injectabl e, quadrivalent, preservative free Dr. Kasey Cisneros Work Phone: [facility] 02-29-2020 pneumococcal conjuga te vaccine, [address] Kasey Cisneros Work Phone: [facility] Payers Date Payer Category Payer Self-pay [id number] 2025 Unknown [id number] Unknown [id number] Unknown [id number] Unknown [id number] Unknown [id number] Social History Date Type Detail Facility Start: 07-02-2023 End: 08-20-2023 Tobacco smoking status MNIS Unknown if ever smoked [facility] Start: 1950 Sex Assigned At Female [facility] Start: 09-01-2023 [facility] Sex Female [facility] Progress note 03-07-2025 Note Date & Type Note Facility 03-07-2025 Progress note [facility] Evaluation note Note Date & Type Note Facility Evaluation note Diagnosis Onset Date Palpitations acute GERD (gastroesophageal reflux disease) chronic Hyperlipidemia chronic Hypertension [facility] Work Phone: Evaluation note Note Date & Type Note Facility Evaluation note Diagnosis Onset Date GERD (gastroesophageal reflux disease) chronic Hyperlipidemia chronic Hypertension chronic Palpitations chronic Right ankle pain acute GERD (gastroesophageal reflux disease) chronic Hypertension chronic Palpitations [facility] Work Phone: Evaluation note Note Date & Type Note Facility Evaluation note No assessment information availa [facility] Work Phone: Evaluation note Note Date & Type Note Facility Evaluation note Diagnosis Onset Date Resolution Health care maintenance acute O ctober 2024 9:20am Glaucoma (increased eye pressure) chronic March 07 9:20am Hypertension chronic March 07, 2025 9:20am Osteoporosis chronic March 07, 2025 9:20am Palpitations chronic March 07, 2025 9:20am [facility] Work Phone: Progress note Note Date & Type Note Facility Progress note Note Date/Time March 07, 2025 10:06am [facility] [address] [place] [address] [place] [address] OFFICE VISIT Date of Service: 03/07/25 MR#: [id number] Acct: [id number] Name: JAMES ABRAMS Rep #: [id number] : 1950 Provider: Dr. Pedro Cisneros MD Age/Sex: 74/F Location: [facility] Status: Signed Intake Vital Signs 09/01/23 10:54 03/07/25 09:26 Height 5 ft 2.5 in 5 ft 2.5 in Weight: 148 lb BMI 26.6 BP 130/78 H Blood Pressure Location Lt brachial Position Sitting Respiration 18 Pulse 74 Pulse Source Monitor Temp 96.8 F L Temp Source Temporal Pulse Oximetry (%) 98 Oxygen Delivery Method room air Intake Visit Reasons: General check up/FU Chief Complaint: General check up/FU Is patient in pain?: No Allergies No Known Allergies Allergy (Verified 03/07/25 09:27) Medications ?Medication ?Instructions ?Recorded ?Confirmed ?Type brimonidine 0.025 % eye drops 1 drp ophthalmic (eye) B ID-QID PRN 08/12/19 03/07/25 History dorzolamide 22.3 mg-timolol 6.8 1 drp ophthalmic (eye) BID 08/12/19 03/07/25 History mg/mL eye drops latanoprostene bunod 0.024 % eye 1 drp ophthalmic (eye ) DAILY 08/12/19 03/07/25 History drops (Vyzulta) netarsudil 0.02 % eye drops 1 drp ophthalmic (eye) QPM 08/12/19 03/07/25 History (Rhopressa) famotidine 40 mg tablet 40 mg PO DAILY #90 tabs 02/0103/07/25 Rx Plantar Fasciitis Night Splint #1 ea 09/20/21 03/07/25 Rx Have you fallen in the past year?: Yes (x3 slipped/tripped ) Nurse's Note: pt declines influenza immunization at this time. [facility] Medical History (Updated 03/07/25 @ 10:[address] Kasey Cisneros MD) Health care maintenance Abnormal EKG Right ankle pain Palpitations Hypertension Wears hearing aid Hiatal hernia GERD (gastroesophageal reflux disease) Vision decreased Hearing deficit Glaucoma (increased eye pressure) Cataracts, bilateral bone fractures Surgical History History of ear surgery Tumor [...] times per week HPI HPI Chief Complaint: General check up/FU Details: JAMES ABRAMS, is a 74-year-old female presenting for an annual visit. No acute concerns at this time. 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 Recently, she experienced a large, unusual flash that woke her from sleep with pain, along with occasional stabbing pain in her latter day, which prompted a visit to her eye doctor. A retinal issue was ruled out,and a blood test ordered at that time to investigate for infection or another condition but was ultimately found to be normal. No visual concerns reported atthis time. The patient has a history of osteoporosis but refuses to take medication for it due to a lack of trust in the available treatments. She has tried taking calciumsupplements in the past, but they bothered her stomach. Her vitamin D level was checked in the past and was found to be borderline. Her blood pressure remains borderline, and she is not on any medication for it. Her plastic sheets finishing supervisor recommended walking for half an hour a day to help lower hereye pressure, which she has started doing. Approximately a year and a half ago, she experienced heart palpitations, which resolved after she stopped drinking iced tea in the afternoons. The patient has a history of skin cancer, attributed to living in [place] for 30 years, and has a Mohs surgery scheduled for her back in April. She takes famotidine as needed. Her last mammogram was five years ago. She feels well otherwise. Attestation: Documentation on this patient encounter was supported using ambient scribe technology/ voice AI technology. The patient consented to recording for the purpose of documenting the encounter. Provider reviewed content of the generatednote prior to signature. ROS Const Constitutional: No body ache, chills, excessive sweating, fatigue, fever(s), frequent falls, headache(s), snoring, weight change, sleep problems, abnormal sleep pattern or change in appetite Eyes Eyes: No blurry vision, change in vision, vision loss, dry eyes, eye pain or Light sensitivity ENT ENT: No abnormal hearing, ear or mastoid pain, tinnitus, nasal congestion, headache(s), neck pain or sore throat Resp Respiratory: No cough, excessive phlegm production, hemoptysis, shortness of breath, snoring or wheezing Cardio Cardiology: No chest pain at rest, chest pain with exertion, excessive sweating,shortness of breath, dyspnea on exertion, lightheadedness, orthopnea or palpitations Gastro GI: No abdominal pain, change in bowel habits, change in stool character, constipation, cramping, diarrhea, nausea/dyspepsia or vomiting Genitourinary-Female: No burning urination, painful urination, urinary incontinence, urinary frequency, abnormal vaginal bleeding or pelvic pain Musc Musculoskeletal: No abnormal gait, joint pain, back pain, limited range of motion, neck pain, numbness or tingling Skin Skin: No dry skin, redness, lesions, itchy eyes, rash or wounds Neuro Neurology: No abnormal gait, abnormal hearing, abnormal speech, behavioral changes, frequent falls, headache(s), memory loss, numbness or tingling Psych Psychiatric: No abnormal sleep pattern, No anxiety, No behavioral changes, No change in appetite, No irritability, No memory loss and No Thoughts of harming yourself/Others Endo Endocrine: No cold intolerance, excessive sweating, fatigue, flushing, heat intolerance, increased thirst/drinking, increased hunger or weight change Aller/Imm Allergy/Immunologic: No itchy eyes, seasonal allergy symptoms, hives or wheezing Cristiano/Lymp Hematologic/Lymphatic: No easy bleeding, easy bruising, enlarged lymph nodes or other Exam Const General: cooperative, comfortable and no acute distress Orientation: alert, awake and oriented x3 HENMT Head: normal to inspection, normocephalic and atraumatic Ears: hearing grossly normal bilaterally Neck Neck: normal visual inspection, full ROM, no lymphadenopathy and supple Neck mass: No Thyroid: thyroid normal Resp Effort & Inspection: normal respiratory effort and able to speak in complete sentences Auscultation: Bilateral: Clear to Auscultation Cardio Rate: regular rate Rhythm: regular rhythm Heart Sounds: S1 normal and S2 normal GI Palpation: soft (Nontender, no palpable organomegaly.) Neuro General: patient alert, patient awake, patient oriented x3, moves all extremities and CN's II-XI intact bilaterally Extrem General: no clubbing, cyanosis or edema Psych Appearance: grossly normal Mental Status: mental status grossly normal Mood: congruent mood Affect: normal affect Coding Level of Care Code Off vis,est,level 4 Diagnoses Glaucoma (increased eye pressure) H40.9 Osteoporosis M81.0 Hypertension I10 Palpitations R00.2 Health care maintenance Z00.00 Assessment and Plan Assessment and Plan (1) Glaucoma (increased eye pressure): Status: Chronic Plan: No acute concerns at this time. As above status post recent visit due to concern for flashing lights/pain. Had labs due to concern for temporal arteritis however labs came back normal. The patient will continue to follow upwith her plastic sheets finishing supervisor for management of her glaucoma. She is encouraged to continue walking 30 minutes daily as per her eye doctor's recommendation to helplower intraocular pressure. (2) Osteoporosis: Status: Chronic Plan: The patient declined pharmacologic treatment for osteoporosis. She will begin taking a vitamin D supplement, 2000 IU daily, as her previous level was borderline. She reports intolerance to calcium supplements. Repeat vitamin D level ordered, will review (3) Hypertension: Status: Chronic Plan: The patient's blood pressure remains borderline; she will continue with lifestyle changes, including daily walking, and will not start medication at this time. (4) Palpitations: Status: Chronic Plan: Following dietary changes (stopped taking excessive iced tea) symptoms resolved. Continue dietary and lifestyle modification (5) Health care maintenance: Status: Acute Plan: Routine blood work will be obtained today. An order will be placed for a screening mammogram, as her last was five years ago. Continue follow-up with dermatology for Mohs procedure.not open to vaccines. The patient is scheduled to follow up in one year. This note was generated with Fundbox[employer] software. It may contain incorrectwords, spelling, and punctuation that were not noted in checking the note beforesigning. Orders: Orders Comprehensive Metabolic Profil Today K21.9 - Gastro-esophageal reflux disease without esophagitis, M81.0 - Age-related osteoporosis without current pathological fracture Vitamin D,25 Hydroxy Today M81.0 - Age-related osteoporosis without current pathological fracture SCRN MAMM (CAD)W/RICKEY BILAT Today Patient Instructions: - Take vitamin D, 2000 units, once a day. - Continue walking for half an hour every day, as this is beneficial for many things, including your eye pressure. - Complete the blood work ordered for you at the lab in the clinic today. - Schedule an appointment for a mammogram. - Keep your appointment for Mohs surgery on your back in April. - You can continue to take famotidine as needed. - Please return for a follow-up visit in one year. Clinical Quality Measures Falls Risk Screening/Assistive Devices Have you fallen in the past year?: Yes (x3 slipped/tripped ) 03/07/25 1006 <Electronically signed by Kasey buckley MD> Date _ Kasey Cisneros MD Cosigner Signature: Date (if applicable) CC: ~ [facility] Work Phone: Reason for referral (narrative) Note Date & Type Note Facility Reason for referral (narrative) No reason for referral information available [facility] Work Phone: Chief Complaint and Reason [...] pain GERD (gastroesophageal reflux disease) Hypertension Palpitations Chief Complaint Admit Date LABS February 25, 2025 12:31pm Chief Complaint Admit Date LABS February 25, 2025 12:31pm General check up/FU March 07, 2025 9: 20am Reason for Visit Admit Date Health care maintenance March 07 9:20am Glaucoma (increased eye pressure) Octobe r 2024 9:20am Hypertension March 07, 2025 9: 20am Osteoporosis March 07, 2025 9: 20am Palpitations March 07, 2025 9: 20am Family History No Family History Records Found [...] P jose, Attending Provider, Referring Provider Active Team Status: Active Member Role/Relationship Status Dates Dr. Kasey Cisneros MD Primary care physician Activ e Team Status: Inactive Member Role/Relationship Status Dates Dr. Kasey Cisneros MD Primary care physician Activ e Start: February 25, 2025 End: February 25, 2025 MARIA MALONE Attending physician Active Start : February 25, 2025 End: February 25, 2025 MARIA MALONE Referring Provider Active Start: February 25, 2025 End: February 25, 2025 Team Status: Inactive Member Role/Relationship Status Dates Dr. Kasey Cisneros MD Primary care physician Activ e Start: March 07, 2025 End: March 07, 2025 Dr. Kasey Cisneros MD Attending physician Active Start: March 07, 2025 End: March 07, 2025 Dr. Kasey Cisneros MD Referring Provider Active Start: March 07, 2025 End: March 07, 2025 Team Status: Active Member Role/Relationship Status Dates Dr. Kasey Cisneros MD Primary care physician Activ e Start: March 07, 2025 Dr. Kasey Cisneros MD Attending physician Active Start: March 07, 2025 Dr. Kasey Cisneros MD Referring Provider Active Start: March 07, 2025 Goals (unrecognized section and content) Goals may be documented in a n alternate sectionGoals may be documented in an alternate sectionGoals may be documented in an alternate sectionGoals may be documented in an alternate sectionGoals may be documented in an alternate section INFORMATION SOURCE (unrecogn ized section and content) DATE CREATED AUTHOR 03/20/2025 [facility] FOR RECORDS PERTAINING TO PATIENTS WHO ARE [...] BE BASED ON THE PRIMARY CLINICAL RECORDS. [address] [facility]. provides no warranty or guarantee of the accuracy or completeness of information in this document.
== END | disposition home or self-care (01) ==
LOC: OPBI 14:35
PROVIDERS: PCP Internal Medicine; Referring Provider Internal Medicine; Visit Provider Internal Medicine
DX: Z12.31 Encounter for screening mammogram for malignant neoplasm of breast (principal)
CPT/HCPCS: 77063; 77067